=== PATIENT | male | born 1985 | race Caucasian/White ===

== ENCOUNTER → 2020-09-29 10:23 | Outpatient (BNVA) | payer OTHER, SELFPAY | PROVIDERS: PCP Pediatrics; Visit Provider Surgery ==

== ENCOUNTER → 2020-10-13 08:26 | Outpatient (BNVA) | payer OTHER, SELFPAY | PROVIDERS: PCP Pediatrics; Visit Provider Surgery ==

== ENCOUNTER → 2020-10-27 08:22 | Outpatient (BNVA) | payer OTHER, SELFPAY | PROVIDERS: PCP Pediatrics; Visit Provider Dietitian, Registered ==

== ENCOUNTER 2020-11-08 07:12 | Outpatient (REF) | payer OTHER, SELFPAY ==
--- NOTE | ~2020-11-08 | XR_ITS ---
EXAMINATION: XR CHEST CLINICAL INFORMATION: Shortness of breath. COMPARISON: None TECHNIQUE: 2 views of the chest were obtained. FINDINGS: No significant abnormality is noted involving the heart, lungs, mediastinum, bony thorax or soft tissues. XR/XR chest 2V IMPRESSION: No acute cardiopulmonary process.
--- NOTE | 2020-11-08 07:34 | ECG_ITS ---
Test Reason : MORBID OBESITY Blood Pressure : / mmHG Vent. Rate : 078 BPM Atrial Rate : 078 BPM P-R Int : 158 ms QRS Dur : 100 ms QT Int : 372 ms P-R-T Axes : 053 045 036 degrees QTc Int : 424 ms Normal sinus rhythm Normal ECG No previous ECGs available Referred By: Soco Gonzalez Electronically Signed By:Everardo Jansen
[2020-11-08 07:59] LABS: MANUAL DIFF FLAG NO
[2020-11-08 08:02] LABS: Basophils Percent Auto 0.4 % (0-2); Eosinophils Absolute Auto 0.3 X10*3/uL (0.0-0.4); Eosinophils Percent Auto 4.1 % (0-4); Hematocrit 46.7 % (42-52); Hemoglobin 14.9 g/dl (14.0-18.0); Imm Gran Abs Auto 0.01 X10*3/uL (0.00-0.03); Imm Gran Pct Auto 0.1 % (0.0-0.4); Lymphocytes Absolute Auto 2.1 X10*3/uL (1.2-4.9); Mean Corpuscular HGB Conc 31.9 g/dl (31.0-36.0); Mean Corpuscular Hemoglobin 29.3 pg (27.0-33.0); Mean Corpuscular Volume 91.9 fL (80-98); Mean Platelet Volume 9.4 fL (9.4-12.4); Monocytes Absolute Auto 0.4 X10*3/uL (0.1-1.2); Monocytes Percent Auto 5.9 % (2-11); Neutrophils Absolute Auto 3.9 X10*3/uL (2.0-8.3); Neutrophils Percent Auto 58.5 % (45-73); Platelet Count 272 X10*3/uL (160-400); Red Blood Count 5.08 X10*6/uL (4.60-5.80); Red Cell Distribution Width 12.7 % (11.0-16.0); White Blood Count 6.8 X10*3/uL (4.8-10.8)
[2020-11-08 08:30] LABS: Alanine Aminotransferase 46 U/L (0-40); Albumin Level 4.6 g/dL (3.5-5.0); Alkaline Phosphatase 66 U/L (39-117); Anion Gap 13 (12-20); Aspartate Amino Transferase 38 U/L (5-37); Bilirubin Total 0.5 mg/dL (0.0-1.0); Blood Urea Nitrogen 14 mg/dL (9-16); C Reactive Protein 0.84 mg/dL (< or = 0.50); Calcium 9.6 mg/dL (8.4-10.2); Carbon Dioxide 26 mmol/L (22-29); Chloride 106 mmol/L (96-108); Cholesterol 203 mg/dL; Estimated Glomerular Filt Rate > 60; Glucose Fasting 115 mg/dL (60-99); HDL Cholesterol 30 mg/dL; Iron 49 mcg/dL (45-160); LDL Cholesterol Calculated 151 mg/dl; Percent Iron Saturation 11 % (15-50); Potassium 4.8 mmol/L (3.3-5.1); Sodium 140 mmol/L (135-145); Total Iron Binding Capacity 453 mcg/dL (228-428); Total Protein 7.5 g/dL (6.5-8.0); Triglycerides 114 mg/dL; Unsaturated Iron Binding 404 ug/dL
[2020-11-08 08:50] LABS: Vitamin D 25-OH Total 19.5 ng/mL (>30)
[2020-11-08 08:56] LABS: Vitamin B12 407 pg/mL (200-900)
[2020-11-09 14:57] LABS: H Pylori Breath Test NOT DETECTED (NOT DETECTED)
[2020-11-09 15:46] LABS: Calcium (PTHI) 10.1 mg/dL (8.6-10.3); PTHI 53 pg/mL (14-64)
[2020-11-11 00:47] LABS: Zinc 74 mcg/dL (60-130)
[2020-11-11 11:56] LABS: Vitamin B1 <6 nmol/L (8-30)
[2020-11-14 18:53] LABS: Vitamin A 51 mcg/dL (38-98)
== END 2020-11-08 07:13 | disposition home or self-care (01) ==
LOC: HO.LAB 07:12
PROVIDERS: PCP Pediatrics; Visit Provider Surgery
DX: Z01.818 Encounter for other preprocedural examination (principal); R06.02 Shortness of breath
CPT/HCPCS: 36415; 71046; 80053; 80061; 82306; 82607; 83013; 83540; 83970; 84425; 84443; 84590; 84630; 85025; 86140; 93005

== ENCOUNTER → 2020-11-10 14:28 | Outpatient (BNVA) | payer OTHER, SELFPAY | PROVIDERS: PCP Pediatrics; Visit Provider Surgery ==

== ENCOUNTER → 2020-11-22 16:11 | Outpatient (BNVA) | payer OTHER, SELFPAY | PROVIDERS: PCP Pediatrics; Visit Provider Dietitian, Registered ==

== ENCOUNTER → 2020-12-06 16:03 | Outpatient (BNVA) | payer OTHER, SELFPAY | PROVIDERS: PCP Pediatrics; Visit Provider Surgery ==

== ENCOUNTER 2021-01-17 15:53 | Outpatient (REF) | payer OTHER, SELFPAY ==
[2021-01-17 18:18] LABS: Vitamin D 25-OH Total 27.8 ng/mL (>30)
[2021-01-22 11:56] LABS: Vitamin B1 11 nmol/L (8-30)
== END 2021-01-17 15:54 | disposition home or self-care (01) ==
LOC: HO.LAB 15:53
PROVIDERS: PCP Pediatrics; Referring Provider Pediatrics; Visit Provider Surgery
DX: Z01.818 Encounter for other preprocedural examination (principal); E66.01 Morbid (severe) obesity due to excess calories; Z68.34 Body mass index [BMI] 34.0-34.9, adult; E51.9 Thiamine deficiency, unspecified; E55.9 Vitamin D deficiency, unspecified
CPT/HCPCS: 36415; 82306; 84425

== ENCOUNTER → 2021-02-15 14:42 | Outpatient (BNVA) | payer OTHER, SELFPAY | PROVIDERS: PCP Pediatrics; Referring Provider Pediatrics; Visit Provider Physician Assistant ==

== ENCOUNTER → 2021-03-21 08:09 | Outpatient (BNVA) | payer OTHER, SELFPAY | PROVIDERS: PCP Pediatrics; Visit Provider Dietitian, Registered | DX: E66.01 Morbid (severe) obesity due to excess calories (principal) | CPT/HCPCS: 97803 ==

== ENCOUNTER → 2021-06-13 15:45 | Outpatient (BNVA) | payer OTHER, SELFPAY | PROVIDERS: PCP Pediatrics; Referring Provider Pediatrics; Visit Provider Physician Assistant Surgical ==

== ENCOUNTER → 2021-07-06 12:52 | Outpatient (BNVA) | payer OTHER, SELFPAY | PROVIDERS: PCP Pediatrics; Visit Provider Physician Assistant | DX: S61.215A Laceration without foreign body of left ring finger without damage to nail, initial encounter (principal); W26.8XXA Contact with other sharp object(s), not elsewhere classified, initial encounter | CPT/HCPCS: 12001; 99203 ==

== ENCOUNTER → 2021-07-10 09:40 | Outpatient (BNVA) | payer OTHER, SELFPAY | PROVIDERS: PCP Pediatrics; Visit Provider Physician Assistant Medical | DX: S61.215A Laceration without foreign body of left ring finger without damage to nail, initial encounter (principal); W26.9XXA Contact with unspecified sharp object(s), initial encounter | CPT/HCPCS: 99213 ==

== ENCOUNTER → 2021-07-14 09:17 | Outpatient (BNVA) | payer OTHER, SELFPAY | PROVIDERS: PCP Pediatrics; Visit Provider Physician Assistant | DX: S61.215A Laceration without foreign body of left ring finger without damage to nail, initial encounter (principal); W26.9XXA Contact with unspecified sharp object(s), initial encounter; Z48.02 Encounter for removal of sutures | CPT/HCPCS: 99214 ==

== ENCOUNTER → 2021-07-17 10:58 | Outpatient (BNVA) | payer OTHER, SELFPAY | PROVIDERS: PCP Pediatrics; Visit Provider Internal Medicine | DX: S61.215A Laceration without foreign body of left ring finger without damage to nail, initial encounter (principal); W26.9XXA Contact with unspecified sharp object(s), initial encounter | CPT/HCPCS: 99213 ==

== ENCOUNTER 2021-07-24 08:05 | Outpatient (REF) | payer OTHER, SELFPAY ==
--- NOTE | ~2021-07-24 | FL_ITS ---
EXAMINATION: XR GI SERIES CLINICAL INFORMATION: [id number] obesity due to excess calories. Preop workup. COMPARISON: None. TECHNIQUE: Routine upper GI air-contrast study was performed. FINDINGS: Following oral administration of thick barium and effervescent granules in upright view, there is normal propagation of bolus from the oral cavity, through the pharynx and esophagus and into the stomach without any evidence of obstruction or narrowing. On placing patient supine and prone lying, the course, caliber and peristalsis of stomach and the duodenal bulb are normal. There is moderate gastroesophageal reflux without hiatal hernia. The mucosal pattern of the stomach, duodenal bulb and the sweep is normal. FLUOROSCOPY TIME: 1.2 minutes. DOSE AREA PRODUCT: 60.613 uGy-m2 (microgray-meter squared). FL/FL upper GI series IMPRESSION: Moderate gastroesophageal reflux without hiatal hernia.
--- NOTE | ~2021-07-24 | US_ITS ---
EXAMINATION: US COMPLETE ABDOMEN WITH LIVER ELASTOGRAPHY CLINICAL INFORMATION: Moderate/severe obesity due to excess calories. COMPARISON: None. TECHNIQUE: Real-time imaging of the abdominal viscera. Noninvasive ultrasound liver fibrosis assessment is performed using Raissa ElastPQ point quantification shear wave elastography (pSWE) with a C5-2 MHz transducer. Multiple elastography samples are obtained. FINDINGS: PANCREAS: The visualized pancreatic head and body are normal in appearance. The remainder of the pancreas is obscured from visualization by the overlying bowel gas. ABDOMINAL AORTA: The proximal, middle, and distal aortic segments are normal in caliber. INFERIOR VENA CAVA: Visualized portions are normal. LIVER: The liver demonstrates normal size, contour and increased echogenicity. No focal lesion or intrahepatic biliary duct dilatation. The right lobe measures 24.2 cm in length. The left lobe measures 14.0 cm in length. Portal flow is hepatopetal. Shear wave liver elastography median stiffness is 1.73 m/s (reference: normal median stiffness is 1.3 m/s or less). IQR/median stiffness to assess sampling precision is 0.14 (reference: good quality data set is IQR/median stiffness of 0.15 or less). GALLBLADDER: Normal. The gallbladder is physiologically distended without evidence of stones, sludge, polyps, wall thickening or pericholecystic fluid. COMMON BILE DUCT: Normal in caliber measuring 0.3 cm in diameter. RIGHT KIDNEY: Normal. No hydronephrosis. No renal calculi or focal parenchymal lesions. The kidney measures 12.2 cm in maximum dimension. LEFT KIDNEY: Normal. No hydronephrosis. No renal calculi or focal parenchymal lesions. The kidney measures 13.2 cm in maximum dimension. SPLEEN: Normal. The spleen measures 11.9 cm in maximum dimension. FREE FLUID: None. US/US abdomen comp w elastography IMPRESSION: 1. Diffusely echogenic liver without focal lesion. 2. The rest of the abdominal ultrasound is unremarkable. 3. Liver elastography: Median liver stiffness 1.73 m/s. Findings suggestive of cACLD. REFERENCE: Society of Radiologists in Ultrasound Liver Stiffness Thresholds (2019): LIVER STIFFNESS THRESHOLDS: *Liver Stiffness equal or less than 1.3 m/s: High probability of being normal. *Liver Stiffness less than 1.7 m/s: In the absence of other known clinical signs, rules out compensated advanced chronic liver disease. *Liver Stiffness 1.7-2.1 m/s: Suggestive of compensated advanced chronic liver disease but need further test for confirmation. *Liver Stiffness over 2.1 m/s: Rules in compensated advanced chronic liver disease. *Liver Stiffness over 2.4 m/s: Suggestive of clinically significant portal hypertension. QUALITY OF DATA SET: *IQR/Median value equal or less than 0.15 implies a quality data set. *IQR/Median value over 0.15 implies a poor quality data set. SIGNIFICANT CHANGE FROM PRIOR EXAM: Significant change if liver stiffness measurement is 10% or greater from prior exam. OTHER CONSIDERATIONS: The stage of liver fibrosis may be overestimated in the setting of acute hepatitis, liver inflammation, elevated liver function tests, hepatic vascular congestion, obstructive cholestasis, non-fasting state, and infiltrative diseases such as amyloidosis and lymphoma. In some patients with NAFLD, the liver stiffness thresholds for compensated advanced chronic liver disease may be lower. In causes other than viral hepatitis and NAFLD, liver stiffness thresholds are not well established.
== END 2021-07-24 08:06 | disposition home or self-care (01) ==
LOC: HO.US 08:05
PROVIDERS: PCP Pediatrics; Visit Provider Physician Assistant Surgical
DX: E66.01 Morbid (severe) obesity due to excess calories (principal)
CPT/HCPCS: 74240; 76705; 76981

== ENCOUNTER → 2022-01-03 10:03 | Outpatient (BNVA) | payer OTHER, SELFPAY | PROVIDERS: PCP Pediatrics; Visit Provider Physician Assistant Surgical | DX: E66.01 Morbid (severe) obesity due to excess calories (principal) ==

== ENCOUNTER → 2022-01-17 16:00 | Outpatient (BNVA) | payer OTHER, SELFPAY | PROVIDERS: PCP Pediatrics; Referring Provider Physician Assistant Surgical; Visit Provider Counselor Mental Health | DX: Z13.89 Encounter for screening for other disorder (principal) | CPT/HCPCS: 90834 ==

== ENCOUNTER → 2022-03-15 15:45 | Outpatient (BNVA) | payer SELFPAY | PROVIDERS: PCP Pediatrics; Visit Provider Counselor Mental Health | DX: F33.2 Major depressive disorder, recurrent severe without psychotic features (principal); E66.01 Morbid (severe) obesity due to excess calories | CPT/HCPCS: 90834 ==

== ENCOUNTER → 2022-07-24 13:53 | Outpatient (BNVA) | payer OTHER, SELFPAY | PROVIDERS: PCP Pediatrics; Visit Provider Physician Assistant Medical | DX: S93.401A Sprain of unspecified ligament of right ankle, initial encounter (principal); X50.1XXA Overexertion from prolonged static or awkward postures, initial encounter | CPT/HCPCS: 73610; 99203 ==

== ENCOUNTER → 2022-08-01 13:00 | Outpatient (BNVA) | payer OTHER, SELFPAY | PROVIDERS: PCP Pediatrics; Visit Provider Physician Assistant Medical | DX: S93.401A Sprain of unspecified ligament of right ankle, initial encounter (principal); X50.1XXA Overexertion from prolonged static or awkward postures, initial encounter | CPT/HCPCS: 99213 ==

== ENCOUNTER 2022-10-10 16:00 | Outpatient (RCR) | payer OTHER, SELFPAY | END 2022-11-06 14:25 | disposition home or self-care (01) | LOC: HO.PT 16:00 | PROVIDERS: PCP Pediatrics; Visit Provider Podiatrist | DX: M72.2 Plantar fascial fibromatosis (principal) | CPT/HCPCS: 97033; 97110; 97140; 97162; 97530 ==

== ENCOUNTER 2023-08-09 20:28 | Emergency (ER) | payer OTHER, SELFPAY ==
[2023-08-09 20:30] VITALS: BP 146/75; PULSE 91; RESP 18; TEMP 36.3; O2SAT 100; BMI 53.8
--- NOTE | 2023-08-09 20:30 | ED_ITS ---
HPI - General Adult General Chief complaint: Wound/Laceration Stated complaint: LT leg inj Time Seen by Provider: 08/09/23 21:06 Source: patient Mode of arrival: ambulatory Limitations: no limitations History of Present Illness HPI narrative: Up comes to the emergency room complaining of a varicose vein bleed. Patient states that earlier today, patient hit his knee against a forklift. Patient states that his knee started bleeding profusely. On arrival, pressure was applied to the affected area and the bleeding stopped. Otherwise, patient states that he has no other injuries, patient is asymptomatic. Related Data Home Medications Medication Instructions Recorded Confirmed acetaminophen 325 mg tablet 325 mg PO QID PRN 09/29/20 01/03/22 (Tylenol) cinnamon bark 500 mg capsule 500 mg PO DAILY 09/29/20 01/03/22 multivitamin 1 tab PO DAILY 09/29/20 01/03/22 omega-3 fatty acids 1,000 mg 1,000 mg PO DAILY 09/29/20 01/03/22 capsule (Fish Oil Concentrate) loratadine 10 mg tablet (Claritin) 10 mg PO DAILY 01/17/21 01/03/22 Allergies Allergy/AdvReac Type Severity Reaction Status Date / Time Seasonal Allergies Allergy Severe Sneezing Verified 08/09/23 20:30 Review of Systems Review of Systems: Constitutional : No Weight loss, No Fever, No Chills, No Night Sweats, No Fatigue, No Malaise ENT/Mouth : No Hearing loss, No Ear Pain, No Nasal Congestion, No Sinus Pain, No Hoarseness, No sore throat, No Rhinorrhea, No Swallowing Difficulty Eyes: No Eye Pain, No Swelling, No Redness, No Foreign Body, No Discharge, No Vision Changes Cardiovascular : No Chest Pain, No SOB, No Dyspnea on Exertion, No Orthopnea, No Edema, No Palpitations Respiratory : No Cough, No Sputum, No Wheezing, No Smoke Exposure, No Dyspnea Gastrointestinal : No Nausea, No Vomiting, No Diarrhea, No Constipation, No abdominal Pain, No Hematochezia, No Melena Genitourinary : no irregular bleeding, No Dysuria, No Urinary Frequency, No Hematuria, No Urinary Incontinence, No Urgency, No Flank Pain, No Urinary Flow Changes, No Hesitancy Musculoskeletal : No joint pain, No Myalgias, No Joint Swelling Skin : Complaining of a small bleeding varicose vein in the left lower extremity at the knee cap Neuro : No Weakness, No Numbness, No Paresthesias, No Loss of Consciousness, No Dizziness, No Headache Psych : No Anxiety/Panic, No Depression, No SI/HI/AH/VH, No Social Issues, Heme/Lymph: No Bruising, No Bleeding,No Lymphadenopathy Endocrine : No Polyuria, No Polydipsia, No Temperature Intolerance [facility] Past Medical History Medical History Sleep apnea with use of continuous positive airway pressure (CPAP) GERD (gastroesophageal reflux disease) ADHD Morbid obesity due to excess calories Surgical History History of eye surgery History of surgery on extremity History of hip surgery History of tonsillectomy and adenoidectomy History of placement of ear tubes Family History Family History Mother Diabetes Father No problems noted. Brother No problems noted. Brother No problems noted. Maternal Grandfather Colon cancer Social History Social History Alcohol intake: current Alcohol intake frequency: a few times a week Alcohol type: beer Patient Tobacco Use Status: Never used Tobacco Advance Directives: No Advance Directives Information Provided: No Physical Exam ED Vital Signs: Vital Signs - 24 hr 08/09/23 20:30 Temperature 97.3 F Pulse Rate 91 Respiratory Rate 18 Blood Pressure 146/75 H Pulse Oximetry 100 Oxygen Delivery Method Room Air BMI result Body Mass Index 53.8 Const Other: Appearance: Alert. Oriented X3. No acute distress. Eyes: Pupils equal, round and reactive to light. ENT: Pharynx normal. Neck: Normal inspection. Neck supple. No lymph nodes noted. No crepitus CVS: Normal heart rate and rhythm. Pulses normal. Normal S1 and S2 Respiratory: No respiratory distress. Breath sounds normal. No Wheezing. No rales Abdomen: Soft and nontender. No rigidity. No distention. Skin: Skin warm and dry. Normal skin color. Normal skin turgor. There is a 0.5 cm laceration to the left knee, scant amount of bleeding at this time. Extremities: No lower extremity edema. No Lacerations. No Rash Neuro: Oriented X 3. No motor deficit. No sensory deficit. Moving all extremities. No slurred speech. CN 2 through 12 grossly intact Psych: calm, cooperative, normal affect Course Course Course Narrative: RME- 38 year old male presents for evaluation of a puncture wound to the left knee. Reports significant bleeding. On exam, there is a small puncture wound over the patella. Bleeding is controlled at the time of triage. Tetanus is up to date. Plan for x-ray of the left knee Medications Administered Discontinued Medications Generic Name Dose Route Start Last Admin Trade Name Kay PRN Reason Stop Dose Admin Lidocaine HCl 2 ml 08/09/23 21:11 08/09/23 21:19 Lidocaine Hcl 2% 2 Ml Vial INFILTRATI 08/09/23 21:12 2 ml ONCE ONE Administration Procedures Laceration Laceration 1: Site: lower extremity Side (If applicable): left Size (cm): 0.5 Description: linear and flap Depth: simple, single layer Local Anesthetic: lidocaine 1% Amount of anesthesia used (mL): 1 Skin layer closed with: nylon Size (cm): 5-0 Number of sutures: 2 Technique: simple, interrupted Medical Decision Making Medical Decision Making [facility] Narrative: -two stitches were applied, bleeding stopped. -patient states that he had his tetanus shot approximately 2 years ago. Up-to-date. Differential Diagnosis Differential Diagnoses: The differential diagnosis associated with the presentation includes (Laceration, puncture wound) Discharge Plan Discharge Clinical Impression: Laceration of skin of knee Patient Disposition: Home, Self-Care Instructions: Laceration (ED) Additional Instructions: Your stitches need to be removed in 7-10 days. Please follow-up with your primary care physician tomorrow. If you have any worsening or new symptoms, please return to the emergency room or call 911 Prescriptions: No Action acetaminophen [Tylenol] 325 mg tablet 325 mg PO QID PRN multivitamin Tablet 1 tab PO DAILY omega-3 fatty acids [Fish Oil Concentrate] 1,000 mg capsule 1,000 mg PO DAILY cinnamon bark 500 mg capsule 500 mg PO DAILY loratadine [Claritin] 10 mg tablet 10 mg PO DAILY Stand Alone Forms: Work/School Release
== END 2023-08-09 22:18 | disposition home or self-care (01) ==
PROVIDERS: Emergency Provider Emergency Medicine
DX: S81.012A Laceration without foreign body, left knee, initial encounter (principal); W26.9XXA Contact with unspecified sharp object(s), initial encounter; Y93.9 Activity, unspecified; Y92.9 Unspecified place or not applicable; Y99.0 Civilian activity done for income or pay
CPT/HCPCS: 12001; 99282; 99284

== ENCOUNTER → 2025-04-20 09:56 | Outpatient (BNVA) | payer OTHER, SELFPAY | PROVIDERS: PCP Internal Medicine; Visit Provider Registered Nurse | DX: S83.412A Sprain of medial collateral ligament of left knee, initial encounter (principal); X50.1XXA Overexertion from prolonged static or awkward postures, initial encounter | CPT/HCPCS: 99203 ==

== ENCOUNTER → 2025-04-22 07:46 | Outpatient (BNVA) | payer OTHER, SELFPAY | PROVIDERS: PCP Internal Medicine; Visit Provider Physician Assistant Medical | DX: S83.412A Sprain of medial collateral ligament of left knee, initial encounter (principal); X50.1XXA Overexertion from prolonged static or awkward postures, initial encounter; M23.92 Unspecified internal derangement of left knee | CPT/HCPCS: 99213 ==

== ENCOUNTER → 2025-04-26 08:05 | Outpatient (BNVA) | payer OTHER, SELFPAY | PROVIDERS: PCP Internal Medicine; Visit Provider Physician Assistant Medical | DX: M23.8X2 Other internal derangements of left knee (principal); S83.412A Sprain of medial collateral ligament of left knee, initial encounter; X50.1XXA Overexertion from prolonged static or awkward postures, initial encounter | CPT/HCPCS: 99213 ==

== ENCOUNTER 2025-04-30 09:25 | Outpatient (AMB) | payer BC, SELFPAY ==
--- OUTSIDE RECORDS SUMMARY | 2023-07-22 18:40 | XMS_ITS | Encounter Summary ---
Author Organization [facility] Address [address] [place] [address] Phone Care Team Providers Care Supervisor Pigment Making Name Role Phone Elmer Sky MD Primary Care Provider Encounter Details Date Type Department Care Team (Late st Contact Info) Description 07/22/2023 5:40 PM EST Hospital Encounter [facility] [address] [place] [id number] Zahra Mendoza, MOBILE APPLICATION DEVELOPMENT LEAD [address] [place] [address] [email or web address] Social History Tobacco Use Types Packs/Day Years Used Date Smoking Tobacco: Never Smokeless Tobacco: Never Education Answer Date Recorded Are you interested in more education? Not on margarita e 01/11/2023 Are you concerned about learning? Not on file 01/11/2023 No 01/11/2023 No 01/11/2023 Digital Access Answer Date Recorded No 01/26/2023 No 01/26/2023 Reliable internet access at home? Not on file 01/26/2023 Device with a working camera? Not on file Intimate Partner Violence Answer Date R ecorded Are you denied basic needs s uch as food, clothing, or medical care? No 12/18/2024 In the past 12 months have y ou been in a relationship with a person who hurts, threatens, or tries to control you? No 12/18/2024 Are you denied basic needs s uch as food, clothing, or medical care? No 12/18/2024 In the past 12 months have y ou been in a relationship with a person who hurts, threatens, or tries to control you? No 12/18/2024 Sex and Gender Information Value Date Recorded Sex Assigned at Not on file Legal Sex Male 9:16 PM EDT Gender Identity Not on file Sexual Orientation Not on file documented as of this encounter Functional Status * Calculated C-SSRS Risk Score (Lifetime/Recent) Answer Date of Assessment Author No Risk Indicated 12/18/2024 11:26 AM EDT Asha Aguirre RN * [place] Suicide Severity Rating Scale (Screener/Recent Self-Report) Question Answer Date of Assessment Author 1. Wish to be (Past 1 Month) No 025 11:26 AM EDT Asha Aguirre RN 2. Non-Specific Active Suici gerald Thoughts (Past 1 Month) No 12/18/2024 11:26 AM EDT Asha Aguirre RN 6. Suicidal Behavior (Lifetime) No 11:26 AM EDT Asha Aguirre RN documented as of this encounter Plan of Treatment Not on file documented as of this encounter Procedures Procedure Name Priority Date/Time Associated Diagnosis Comments XR CHEST PA AND LATERAL 2 VIEWS Urgent/patient waiting 07/22/2023 5:47 PM EST Cough documented in this encounter Results * XR CHEST PA AND LATERAL 2 VIEWS (07/22/2023 5:47 PM EST) Anatomical Region Laterality Modality Chest Computed Radiogr aphy 07/22/2023 5:48 PM EST Impressions 07/22/2023 5:48 PM EST Mild peribronchial thickening could suggest viral pneumonitis or reactive airways disease. No lobar consolidations. Narrative 07/22/2023 5:48 PM EST XR CHEST PA AND LATERAL 2 VIEWS Referring clinician's provided indication for this examination in Epic: Cough; ? PNA COMPARISON: None FINDINGS: Lungs: Mild peribronchial thickening could suggest viral pneumonitis or reactive airways disease. No lobar consolidations. Pleura: No pleural effusion. No pneumothorax Heart/Mediastinum: Heart size normal. Bones/Soft Tissues: No acute finding Procedure Note Montrell Brooks MD, [facility] - 07/22/2023 XR CHEST PA AND LATERAL 2 VIEWS Referring clinician's provided indication for this examination in Epic:Cough; ? PNA COMPARISON: None FINDINGS: Lungs: Mild peribronchial thickening could suggest viral pneumonitis orreactive airways disease. No lobar consolidations. Pleura: No pleural effusion. No pneumothorax Heart/Mediastinum: Heart size normal. Bones/Soft Tissues: No acute finding IMPRESSION: Mild peribronchial thickening could suggest viral pneumonitis or reactiveairways disease. No lobar consolidations. us Zahra Mendoza MOBILE APPLICATION DEVELOPMENT LEAD IMG XR CHEST Final Resul t documented in this encounter Visit Diagnoses Not on filedocumented in this encounter Additional Health Concerns Infection Onset Date Last Indicated Resolved Time CoV-Risk 07/22/2023 07/22/2023 08/02/2023 1:22 AM EST documented as of this encounter Care Teams Supervisor Pigment Making Relationship Specialty Start Date End Date Elmer Sky MD PCP - General Internal Medicine 04/29/23 12/17/24 documented as of this encounter Additional Source Comments The information contained in this document represents components of the legal health record. It is not the complete legal health record.[facility]
--- OUTSIDE RECORDS SUMMARY | 2025-04-27 15:30 | XMS_ITS | Encounter Summary ---
Author Organization [facility] Address [address] [place] [address] Care Team Providers Care Stand Up Forklift Operator Name Role Phone Elmer Sky MD Primary Care Provider [phone] Reason for Visit * Reason Comments Follow-up 3wk follow up Encounter Details Date Type Department Care Team (Late st Contact Info) Description 04/27/2025 3:30 PM EDT Office Visit Adult Medicine [address] [phone] Elmer Sky MD [address] [place] [address] Hematoma of leg, left, subsequent encounter (Primary Dx); Hematoma of left thigh, subsequent encounter; Varicose veins of bilateral lower extremities with other complications; Impacted cerumen of left ear Social History Tobacco Use Types Packs/Day Years Used Date Smoking Tobacco: Never Smokeless Tobacco: Never Alcohol Use Standard Drinks/Week Comments Yes 0 (1 standard drink = 0.6 oz pur e alcohol) Housing Instability Answer Date Recorde d Are you worried that in the next 2 months you may not have stable housing? No 02/22/2025 Food Access & Nutrition Answer Date Rec orded Do you have access to a vari ety of food including fruits and vegetables? Yes 02/22/2025 Access to Healthcare Answer Date Record ed Within the last 3 months, ho w many times did you visit the emergency department for your medical care? 4 02/22/2025 Health Literacy Answer Date Recorded How often do you need to hav e someone help you when you read instructions, pamphlets, or other written material from your doctor or pharmacy? Never 02/22/2025 Caregiver: How often do you need to have someone help you when you read instructions, pamphlets, or other written material from your doctor or pharmacy? Not on file 02/22/2025 Financial Risk Answer Date Recorded How hard is it for you to pa y for the very basics like food, housing, medical care, and air conditioning / heating? Not very hard 02/22/2025 Transportation Answer Date Recorded Has the lack of transportati on kept you from meetings, work, or from getting things needed for daily living? No Has the lack of transportati on kept you from medical appointments or from getting medications? No 02/22/2025 Social Isolation Answer Date Recorded How often do you feel lonely or isolated from th ose around you? Never 02/22/2025 Food Risk Answer Date Recorded Within the past 12 months we worried whether our food would run out before we got money to buy more. Never true 02/22/2025 Within the past 12 months th e food we bought just didn't last and we didn't have money to get more. Never true 02/22/2025 Dependent Care Answer Date Recorded Do you need help finding or paying for care for your loved ones. For example, child care teacher or elderly care for an older adult? No 02/22/2025 Education Answer Date Recorded Do you think completing more education or training, like finishing a GED, going to college, or learning a trade, would be helpful for you? N/A 02/22/2025 Employment and Income Answer Date Recor ded During the last four weeks, have you been actively looking for work? No 02/22/2025 Living Situation Answer Date Recorded What is your living situation? 0 02/22/2025 Sex and Gender Information Value Date Recorded Sex Assigned at Not on file Legal Sex Male 11:47 AM EST Gender Identity Not on file Sexual Orientation Not on file documented as of this encounter Last Filed Vital Signs Vital Sign Reading Time Taken Comments Blood Pressure 137/83 04/27/2025 3:37 PM EDT Pulse 89 04/27/2025 3:37 PM EDT Temperature 36.1 C (96.9 F) 04/27/2025 3:37 PM EDT Respiratory Rate - - Oxygen Saturation - - Inhaled Oxygen Concentration - - Weight 200 kg (441 lb) 04/27/2025 3:37 PM EDT Height 177.8 cm (5' 10 ) 04/27/2025 3:37 PM EDT Body Mass Index 63.28 04/27/2025 3:37 PM EDT documented in this encounter Ordered Prescriptions Prescription Sig Dispense Quantity Refills Last Filled Start Date End Date oxyCODONE (ROXICODONE) 5 mg immediate release tabletIndications:H ematoma of left thigh, subsequent encounter,Hematoma of leg, left, subsequent encounter Take 1 tablet (5 mg total) by mouth 2 (two) times a day if needed for severe pain. Max Daily Amount: 10 mg 14 tablet 04/27/2025 documented in this encounter Progress Notes * Elmer Sky MD - 04/27/2025 3:30 PM EDT CHIEF COMPLAINT: Follow-up (3wk follow up) IDENTIFIER: Kiet Spain is a 39 y.o. old male. HPI: 39-year-old male patient with a past medical history of morbid obesity, PRANAV on CPAP therapy, varicose veins lower extremities, recent traumatic left leg hematoma and left lower thigh hematoma, ADHD, insomnia, who is seen here for follow-up exam. So far he underwent ultrasound-guided aspiration of the hematoma for 3 times. 3 weeks ago 100 mL of serous fluid was aspirated from left leg. He is stillhaving left upper leg swelling with some mild tenderness. Overall he is feeling better, he is ambulating without any issues. He is having an appointment with general surgeon this week. He is also having an appointment with vascular surgery. I recommended him to take Tylenol as needed and avoid NSAIDs. I will give him prescription for oxycodone 5 mg as needed for severe pain. He has cerumen impaction on the left side. After obtaining consent, I irrigated the left ear with warm water and removed 90% of wax. Procedure was uneventful. ROS: GENERAL: No malaise, significant weight loss or fever HEENT: Left ear discomfort. No changes in vision, nose bleeds or other nasal problems NECK: No lumps RESPIRATORY: No cough, wheezing or shortness of breath CARDIOVASCULAR: No chest pain, or palpitations GI: No abdominal pain, hematochezia, melena : No dysuria, oliguria, polyuria, hematuria, flank pain MUSCULOSKELETAL: No joint pain or swelling, back pain, or muscle pain. SKIN: No lesions, rash or itching NEURO: No persistent headache, syncope, seizures, weakness or numbness PAST MEDICAL HISTORY: Patient Active Problem List Diagnosis Date Noted Morbid obesity ([facility] V24, [facility] V28) 08/19/2024 Insomnia 05/07/2022 Periodic limb movement disorder (PLMD) 02/14/2021 ADHD (attention deficit hyperactivity disorder) 12/25/2013 PRANAV (obstructive sleep apnea) 12/10/2013 Past Surgical History: Procedure Laterality Date OTHER SURGICAL HISTORY 01/1997 PROCEDURE: MO [employer] 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 Bates thumb tendon repair OTHER SURGICAL HISTORY PROCEDURE: MO PYLOROPLASTY SKIN BIOPSY 06/2001 PROCEDURE: BIOPSY OF SKIN LESION; COMMENT: COMPOUND NEVUS TONSILLECTOMY PROCEDURE: HISTORICAL TONSILLECTOMY TYMPANOSTOMY TUBE PLACEMENT PROCEDURE: HISTORICAL PE TUBES; COMMENT: X 2 SOCIAL HISTORY: Social History Tobacco Use Smoking status: Never Smokeless tobacco: Never Substance Use Topics Alcohol use: Yes FAMILY HISTORY: Family History Problem Relation Name Age of Onset Colon cancer Maternal Grandfather mid 60s Heart attack Maternal Grandmother Arthritis Maternal Grandmother Diabetes Paternal Grandmother INSULIN Family Status Relation Name Status MGF DM MGM PGM Father Alive 1957; asthma; obese Mother Alive 1957; DM; obese Brother Alive 1986; obese PGF No partnership data on file MEDICATIONS DISCONTINUED/REORDERED: Medications Discontinued During This Encounter Medication Reason oxyCODONE (ROXICODONE) 5 mg immediate release tablet Therapy completed ACTIVE MEDICATIONS: Outpatient Medications Marked as Taking for the 04/27/25 encounter (Office Visit) with Elmer Sky MD Medication Sig Dispense Refill acetaminophen (TYLENOL) 500 mg capsule 1 CAPSULE EVERY 4 HOURS NEEDED amphetamine-dextroamphetamine (ADDERALL) 30 mg tablet Take 1 tablet (30 mg total) by mouth 2 times daily. cholecalciferol (Vitamin D3) 50 mcg (2,000 unit) capsule Take 1 capsule (2,000 Units total) by mouth 1 (one) time each day. 90 capsule 1 furosemide (LASIX) 20 mg tablet Take 1 tablet (20 mg total) by mouth 1 (one) time each day. 30 each0 gabapentin (NEURONTIN) 300 mg capsule Take 1 capsule (300 mg total) by mouth at bedtime as needed (Insomnia). qualggkm-dqewlzsop-uanncfrbwejqwp (CORTISPORIN) otic solution Administer 2 drops into the left ear 4 (four) times a day. 10 mL 0 oxyCODONE (ROXICODONE) 5 mg immediate release tablet Take 1 tablet (5 mg total) by mouth 2 (two) times a day if needed for severe pain. Max Daily Amount: 10 mg 14 tablet 0 ALLERGIES: Allergies Allergen Reactions Other Seasonal PHYSICAL EXAM: Visit Vitals BP 137/83 Pulse 89 Temp 36.1 ??C (96.9 ??F) (Temporal) Ht 1.778 m (70 ) Wt 200 kg (441 lb) BMI 63.28 kg/m?? Smoking Status Never BSA 2.92 m?? Physical Exam APPEARANCE: Alert and in no acute distress EYES: PERRLA, conjunctiva and sclera normal. EARS: Cerumen impaction on the left side NOSE/SINUS: Nares normal. MOUTH/THROAT: no erythema or exudates HEART: RRR with normal S1 and S2, no murmurs LUNG: clear to auscultation, no wheezing ABDOMEN: Bowel sounds normoactive, soft, non-tender and no palpable masses. BACK: No pain to palpation EXTREMITIES: Left upper leg and left lower thigh swelling NEURO: Awake, alert and oriented x 3. No focal neurological deficits SKIN: No rashes LABS: @CBC@ Lab Results Component Value Date NA 135 04/07/2025 K 4.6 04/07/2025 CL 101 04/07/2025 CO2 28 04/07/2025 GLUCOSE 122 (H) 04/07/2025 BUN 13 04/07/2025 CREATININE 0.94 04/07/2025 CALCIUM 9.9 04/07/2025 PROT 7.6 04/07/2025 ALBUMIN 4.1 04/07/2025 ALBUMIN 4.1 04/07/2025 BILITOT 0.9 04/07/2025 AST 49 (H) 04/07/2025 ALT 41 04/07/2025 MG 2.1 04/07/2025 ALKPHOS 104 04/07/2025 EGFR 105 04/07/2025 Lab Results Component Value Date HGBA1C 6.3 04/07/2025 Lab Results Component Value Date TSH 0.99 04/07/2025 Lab Results Component Value Date CHOL 192 12/18/2018 TRIG 87 12/18/2018 HDL 56 12/18/2018 LDL 119 (A) 12/18/2018 IMAGING: Ultrasound guided drainage on 04/06/20259715-Tovxwirrur-sapthg drainage of recurrent medial left calf hematoma with 100 mL of serosanguineous fluid removed. Small residual hematoma noted. IMPRESSION: 1. Hematoma of leg, left, subsequent encounter 2. Hematoma of left thigh, subsequent encounter 3. Varicose veins of bilateral lower extremities with other complications 4. Impacted cerumen of left ear PLAN: So far he underwent ultrasound-guided aspiration of the hematoma for 3 times. 3 weeks ago 100 mL ofserous fluid was aspirated from left leg. He is still having left upper leg swelling with some mildtenderness. Overall he is feeling better, he is ambulating without any issues. He is having an appointment with general surgeon this week. He is also having an appointment with vascular surgery. I rec ommended him to take Tylenol as needed and avoid NSAIDs. I will give him prescription for oxycodone5 mg as needed for severe pain. Continue Lasix 20 mg daily for pedal edema. He has cerumen impaction on the left side. After obtaining consent, I irrigated the left ear with warm water and removed 90% of wax. Procedure was uneventful. He is applying for FMLA to cover the days between 01/15 to 01/18 and 02/08 to 02/12. Follow-up exam in 5 months for physical exam/sooner as needed All questions and concerns were addressed. Kiet Paul Judit verbalizes understanding and agrees with this treatment plan. Patient was reminded to call or return to the office if any new or existing problems arise. No orders of the defined types were placed in this encounter. None Elmer Sky MD on 04/27/2025 at 9:00 PM EDT Today's documentation was made using voice recognition software.This note may contain grammatical errors secondary to this software. documented in this encounter Plan of Treatment Upcoming Encounters Date Type Department Care Team (Late st Contact Info) Description 06/21/2025 3:00 PM EDT Ancillary Procedure [facility] - [address] [place] [address] 09/28/2025 4:00 PM EST Office Visit Adult Medicine [facility] [address] [place], [place] [phone] Elmer Sky MD [address] [place] [address] documented as of this encounter Visit Diagnoses Diagnosis Hematoma of leg, left, subsequent encounter- Primary Hematoma of left thigh, subsequent encounter Varicose veins of bilateral lower extremities with other complications Impacted cerumen of left ear Impacted cerumen documented in this encounter Discontinued Medications Medication Sig Discontinue Reason Start Date End Da te oxyCODONE (ROXICODONE) 5 mg immediate release tabletIndications:Hemato ma of leg, left, subsequent encounter,Hematoma of left thigh, subsequent encounter Take 1 tablet (5 mg total) by mouth 2 (two) times a day if needed for severe pain. Max Daily Amount: 10 mg Therapy completed 03/16/2025 04/27/2025 documented as of this encounter Additional Health Concerns Assessment Noted Time PHQ-9 Depression Total Score: 0 02/23/20 25 11:12 AM EDT documented as of this encounter Care Teams Stand Up Forklift Operator Relationship Specialty Start Date End Date Elmer Sky MD [address] [place] [address] PCP - General 01/14/23 documented as of this encounter
--- OUTSIDE RECORDS SUMMARY | 2025-04-29 15:30 | XMS_ITS | Encounter Summary ---
Author Organization [facility] Address [address] [place] [address] Care Team Providers Care Production Planner Name Role Phone Elmer Sky MD Primary Care Provider [phone] Reason for Visit * Reason Comments Advice Only LLE hematoma * Consultation (Routine) - Authorized Specialty Diagnoses / Procedures Referred By Contac t Referred To Contact General Surgery Diagnoses Hematoma of left lower extremity, subsequent encounter Hematoma of left thigh, subsequent encounter Sheba Herrera PA [address] [place] [address] Phone: tel: fax: Ancelmo Gonzalez DO [address] [address] Phone: tel: fax: Referral ID Status Reason Start Date Expiration Date Visits Requested Visits Authorized [id number] Authorized Specialty Services Required 04/06/2025 04/06/2026 12 12 Encounter Details Date Type Department Care Team (Late st Contact Info) Description 04/29/2025 3:30 PM EDT Consult General Surgery - [place] [address] [address] Ancelmo Gonzalez DO [address] [place] [address] Hematoma of left lower extremity, subsequent encounter; Hematoma of left thigh, subsequent encounter Social History Tobacco Use Types Packs/Day Years Used Date Smoking Tobacco: Never Smokeless Tobacco: Never Alcohol Use Standard Drinks/Week Comments Not Currently 0 (1 standard drink = 0.6 oz [...] for your loved ones. For example, child and adolescent psychologist or elderly care for an older adult? [...] Sign Reading Time Taken Comments Blood Pressure 152/87 04/29/2025 3:27 PM EDT Pulse 101 04/29/2025 3:27 PM EDT Temperature 37.1 C (98.7 F) 04/29/2025 3:27 PM EDT Respiratory Rate - - Oxygen Saturation - - Inhaled Oxygen Concentration - - Weight 201 kg (443 lb 8 oz) 04/29/2025 3:27 PM E DT Height 176.5 cm (5' 9.5 ) 04/29/2025 3:27 PM EDT Body Mass Index 64.55 04/29/2025 3:27 PM EDT documented in this encounter Plan of Treatment Upcoming Encounters Date Type Department Care Team (Late st Contact Info) Description 06/21/2025 3:00 PM EDT Ancillary Procedure [facility] [address] [facility] [address] [place] [address] 09/28/2025 4:00 PM EST Office Visit Adult Medicine [address] [phone] Elmer Sky MD [address] [place] [address] documented as of this encounter Visit Diagnoses Diagnosis Hematoma of left lower extremity, subsequent encounter Hematoma of left thigh, subsequent encounter documented in this encounter Orders Outpatient Referral Count Last Ordered Date Fir st Ordered Date AMB REFERRAL TO GENERAL SURGERY 1 documented in this encounter Additional Health Concerns Assessment Noted Time PHQ-9 Depression Total Score: 0 02/23/20 25 11:12 AM EDT documented as of this encounter Care Teams Production Planner Relationship Specialty Start Date End Date Elmer Sky MD [address] [place] [address] PCP - General 01/14/23 documented as of this encounter
--- OUTSIDE RECORDS SUMMARY | 2025-04-30 10:13 | XMS_ITS | Encounter Summary ---
Author Organization [facility] Address [address] [place] [address] Care Team Providers Care Laundry Attendant Name Role Phone Caty Gray MD Primary Care Provider Elmer Willis Primary Care Provider [phone] Encounter Details Date Type Department Care Team Description 10/30/2011 Ct Mri Technologist Report Medical Records [address] [place] [address] Mario Farrar Social History Tobacco Use Types Packs/Day Years Used Date Smoking Tobacco: Never Smokeless Tobacco: Never Alcohol Use Standard Drinks/Week Comments Yes 0 (1 standard drink = 0.6 oz pur e alcohol) occasional - once a week Sex Assigned at Date Recorded Not on file documented as of this encounter Plan of Treatment Not on file documented as of this encounter Visit Diagnoses Not on filedocumented in this encounter Care Teams Laundry Attendant Relationship Specialty Start Date End Date Caty Gray MD PCP - General 10/31/1996 01/13/23 Elmer Sky [address] [place] [address] PCP - General Internal Medicine 01/14/23 documented as of this encounter
--- OUTSIDE RECORDS SUMMARY | 2025-04-30 10:13 | XMS_ITS | Encounter Summary ---
Author Organization [facility] Address [address] [place] [address] Care Team Providers Care Inside Meter Tester Name Role Phone Caty Gray MD Primary Care Provider Elmer Willis Primary Care Provider [phone] Reason for Visit * Reason Comments other Encounter Details Date Type Department Care Team Description 12/11/1999 Telephone Allergy [address] [place] [address] Gibson Choi MD other Social History Tobacco Use Types Packs/Day Years Used Date Smoking Tobacco: Never Assessed Sex Assigned at Date Recorded Not on file documented as of this encounter Miscellaneous Notes * Telephone Encounter - 12/11/1999 2:29 PM EDTCALL RECEIVED. Contact: MOMALVAREZ - WORK [phone] MOM WOULD LIKE TO SPEAK TO YOU REGARDING HOW LONG KIET NEEDS TO HAVE HIS ALLERGY SHOTS. documented in this encounter Plan of Treatment Not on file documented as of this encounter Visit Diagnoses Not on filedocumented in this encounter Care Teams Inside Meter Tester Relationship Specialty Start Date End Date Caty Gray MD PCP - General 10/31/1996 01/13/23 Elmer Sky [address] [place] [address] PCP - General Internal Medicine 01/14/23 documented as of this encounter
--- OUTSIDE RECORDS SUMMARY | 2025-04-30 10:13 | XMS_ITS | Clinical Summary ---
Author Organization [facility] Address [address] [place] [address] Care Team Providers Care Content Strategist Name Role Phone Elmer Sky Primary Care Provider [phone] Allergies Active Allergy Reactions Severity Noted Date Comments Seasonal Allergies 04/20/2008 Medications Medication Sig Dispensed Refills Start Date End Date Status TYLENOL CAPS 500 MG OR 1 CAPSULE EVERY 4 HOURS NEEDED 0 Active cetirizine (ZYRTEC) 10 MG tablet Take 10 mg by mouth daily as needed. 0 Active fluticasone (FLONASE) 50 MCG/ACT nasal spray 2 sprays in each nostril once per day for 2 weeks. 1 Bottle 1 07/18/2020 Active trazodone (DESYREL) 50 MG tablet TAKE 1 TABLET BY MOUTH EVERY NIGHT AT BEDTIME 0 03/25/2023 Active ciclopirox (LOPROX) 0.77 % cream Apply 1 Applicator topically 2 times daily. 15 g 3 04/01/2023 Active meloxicam (MOBIC) 15 MG tablet TAKE 1 TABLET BY MOUTH DAILY 30 Tablet 0 09/23/2023 Active Active Problems Problem Noted Date Insomnia 05/07/2022 Periodic limb movement disorder (PLMD) 0 02/14/2021 ADHD (attention deficit hyperactivity di sorder) 12/25/2013 PRANAV (obstructive sleep apnea) 12/10/2013 Overview: Sleep Medicine Services now 01/2021 CPAP 8-16 cm/H2O Morbid obesity with BMI of 50.0-59.9, ad ult 10/05/2008 Immunizations Name Administration Dates Next Due DTP 02/20/1990, 6,01/07/1985, 985,1984 HIB 07/17/1986 Hepatitis B-3 Dose (<19yrs) 09/18/1996, 6,03/18/1996 Influenza (> 6 Months) 05/24/2011 MMR (Pgntlhe-Kncaw-Iqonlyy) 03/18/1996, 6 Polio (OPV) 02/20/1990, 6,1984, 985 TD ([facility]PPLIED FOR ADULT S AND CHILDREN) 11/02/2020,03/23/2009,02/11/1997 Tdap 04/20/2008 Family History Medical History Relation Name Comments Cancer of the Colon Maternal Grandfather mid 60s Arthritis Maternal Grandmother [place] Maternal Grandmother Diabetes Paternal Grandmother INSULIN Relation Name Status Comments Brother Alive 1986; obese Father Alive 1957; asthma; o bese Maternal Grandfather DM Maternal Grandmother Mother Alive 1957; DM; obese Paternal Grandfather Paternal Grandmother Social History Tobacco Use Types Packs/Day Years Used Date Smoking Tobacco: Never Passive Smoke Exposure: Never Smokeless Tobacco: Never Tobacco Cessation:Counseling Given: Not Answered Alcohol Use Standard Drinks/Week Comments Yes 0 (1 standard drink = 0.6 oz pur e alcohol) weekly 1-2 a few days a week Sex Assigned at Date Recorded Not on file Last Filed Vital Signs Vital Sign Reading Time Taken Comments Blood Pressure 138/80 04/01/2023 3:48 PM EDT Pulse 76 04/01/2023 3:48 PM EDT Temperature 36.7 C (98 F) 04/01/2023 3:48 PM EDT Respiratory Rate 16 04/01/2023 3:48 PM EDT Oxygen Saturation 97% 04/01/2023 3:48 PM EDT Inhaled Oxygen Concentration - - Weight 194.6 kg (429 lb) 05/21/2023 3:09 PM EDT Height 177.8 cm (5' 10 ) 05/21/2023 3:09 PM EDT Body Mass Index 61.56 05/21/2023 3:09 PM EDT Plan of Treatment Health Maintenance Due Date Last Done Comments Covid-19 Vaccine (#1) 01/07/1985 CHOLESTEROL SCREENING 12/19/2023 12/18/2018, 008 BASELINE HEALTH EXAM 40-64 07/10/202411/02, 12/18/2018, 12/18/2018, Additional history exists BMI CHECK/ADVISE 09/02/2024 04/01/2023, 10/2020, 02/10/2019, Additional history exists INFLUENZA (#1) 2025 05/24/2011 DTAP/TDAP/TD (9 - Td or Tdap) 11/02/2030, 03/23/2009, 04/20/2008, Additional history exists PNEUMOCOCCAL VACCINE FOR HIG H RISK PATIENTS (#1) 2049 Care Teams Content Strategist Relationship Specialty Start Date End Date Elmer Sky [address] [place] [id number] PCP - General Internal Medicine 01/14/23
--- OUTSIDE RECORDS SUMMARY | 2025-04-30 10:14 | XMS_ITS | Encounter Summary ---
Author Organization [facility] Address [address] [place] [address] Care Team Providers Care Extension Forester Name Role Phone Caty Gray MD Primary Care Provider Elmer Willis Primary Care Provider [phone] Reason for Visit * Reason Comments Asbestos Shingle Inspector Feedback Referral-Dr. Saldana Encounter Details Date Type Department Care Team Description 06/12/2004 Telephone Pediatrics - [address] [address] Lenard Mcarthur MD Asbestos Shingle Inspector Feedback (Referral-Dr. Saldana) Social History Tobacco Use Types Packs/Day Years Used Date Smoking Tobacco: Never Assessed Sex Assigned at Date Recorded Not on file documented as of this encounter Miscellaneous Notes * Telephone Encounter - 06/12/2004 3:24 PM EDTCALL RECEIVED. Contact: Ref to Dr. Saldana done and faxed to office for allergy shots Ref [id number], 30 visits, 06/05/04-06/05/05 Pt has appt 06/07/04 documented in this encounter Plan of Treatment Not on file documented as of this encounter Visit Diagnoses Not on filedocumented in this encounter Care Teams Extension Forester Relationship Specialty Start Date End Date Caty Gray MD PCP - General 10/31/1996 01/13/23 Elmer Sky [address] [place] [address] PCP - General Internal Medicine 01/14/23 documented as of this encounter
--- OUTSIDE RECORDS SUMMARY | 2025-04-30 10:14 | XMS_ITS | Encounter Summary ---
Author Organization [facility] Address [address] [place] [address] Care Team Providers Care Welder Tack Name Role Phone Caty Gray MD Primary Care Provider Elmer Willis Primary Care Provider [phone] Reason for Referral * Radiology Services - Authorized/Booked Specialty Diagnoses / Procedures Referred By Belen robert Referred To Contact Radiology Diagnoses Abdominal pain, bilateral lower quadrant Procedures CT ABD & PELVIS W/O CONTRAST Trino Singh PA-C [address] [place] [address] [address] [address] Referral ID Status Reason Start Date Expiration Date V isits Requested Visits Authorized [id number] Authorized/B ooked 09/22/2014 11/20/2014 1 1 Encounter Details Date Type Department Care Team Description 09/22/2014 Orders Only Medicine/Pediatrics - [address] [id number] Trino Singh PA-C Abdominal pain, bilateral lower quadrant (Primary Dx) Social History Tobacco Use Types Packs/Day Years Used Date Smoking Tobacco: Never Smokeless Tobacco: Never Alcohol Use Standard Drinks/Week Comments Yes 0 (1 standard drink = 0.6 oz pur e alcohol) occasional - once a week Sex Assigned at Date Recorded Not on file documented as of this encounter Plan of Treatment Not on file documented as of this encounter Results * CT ABD & PELVIS W/O CONTRAST (10/07/2014 11:09 AM EST) 10/07/2014 11:3 7 AM EST Impressions WHITE POND OTHER EXTERNAL - 10/07/2014 11:42 AM EST IMPRESSION: Small fat-containing left inguinal hernia. Colonic diverticulosis without evidence of colitis. No acute pathology seen. Narrative WHITE PONSanjay OTHER EXTERNAL - 10/07/2014 11:[address] ABD & PELVIS W/O CONTRAST HISTORY: Bilateral lower abdominal pain. PROCEDURE: Multiple axial images are obtained from the upper abdomen and pelvis. Oral contrast was administered. Coronal and sagittal sections are reformatted. PRIOR STUDIES: Abdominal plain films performed 09/21/2014. Abdominal ultrasound performed 10/30/2011. FINDINGS: Detail is limited by artifacts secondary to patient body habitus. There is a small fat-containing left inguinal hernia. Portions of the colon are not well distended, limiting assessment. No evidence of colitis. Terminal ileum is normal. Appendix is normal. There is scattered colonic diverticulosis. The unenhanced liver, pancreas, kidneys, adrenal glands, and spleen are unremarkable. Small splenule noted in the left upper abdomen. No visible urinary system calculi. The gallbladder is present. The aorta is normal in caliber. The lung bases are clear. No suspicious bone lesion seen. Degenerative changes noted in the spine. Procedure Note Jame Sebastian MD - 10/07/2014 CT ABD & PELVIS W/O CONTRAST HISTORY: Bilateral lower abdominal pain. PROCEDURE: Multiple axial images are obtained from the upper abdomen andpelvis. Oral contrast was administered. Coronal and sagittal sections are reformatted. PRIOR STUDIES: Abdominal plain films performed 09/21/2014. Abdominalultrasound performed 10/30/2011. FINDINGS: Detail is limited by artifacts secondary to patient body habitus. There brock small fat-containing left inguinal hernia. Portions of the colon are not welldistended, limiting assessment. No evidence of colitis. Terminal ileum is normal. Appendix isnormal. There is scattered colonic diverticulosis. The unenhanced liver, pancreas, kidneys, adrenal glands, and spleen areunremarkable. Small splenule noted in the left upper abdomen. No visible urinary systemcalculi. The gallbladder is present. The aorta is normal in caliber. The lung bases are clear. Nosuspicious bone lesion seen. Degenerative changes noted in the spine. IMPRESSION: Small fat-containing left inguinal hernia. Colonicdiverticulosis without evidence of colitis. No acute pathology seen. Trino Singh PA-C CT SCANS FUAD VELEZ OTHER EXTERNAL documented in this encounter Visit Diagnoses Diagnosis Abdominal pain, bilateral lower quadrant- Primary Abdominal pain, other specified site Abdominal pain, bilateral lower quadrant Abdominal pain, other specified site documented in this encounter Care Teams Welder Tack Relationship Specialty Start Date End Date Caty Gray MD PCP - General 10/31/1996 01/13/23 Elmer Sky [address] [place] [address] PCP - General Internal Medicine 01/14/23 documented as of this encounter
--- OUTSIDE RECORDS SUMMARY | 2025-04-30 10:14 | XMS_ITS | Encounter Summary ---
Author Organization [facility] Address [address] [place] [address] Care Team Providers Care Control Clerk Auditing Name Role Phone Caty Gray MD Primary Care Provider Elmer Willis Primary Care Provider [phone] Encounter Details Date Type Department Care Team Description 01/03/2022 Lehr Stripper Report Medical Records [address] [place] [address] Eyal Mcknight [address] [place] [address] Social History Tobacco Use Types Packs/Day Years [...] on filedocumented in this encounter Care Teams Control Clerk Auditing Relationship Specialty Start Date End Date Caty Gray MD PCP - General 10/31/1996 01/13/23 Elmer Sky [address] [place] [address] PCP - General Internal Medicine 01/14/23 documented as of this encounter
--- OUTSIDE RECORDS SUMMARY | 2025-04-30 10:14 | XMS_ITS | Patient Health Record ---
Author [facility] Address [address] [facility] [place]am[place]ESS[place]aiser [address] Care Team Providers Care Occupational Therapy Program Director Name Role Phone Caty Gray Primary Care Provider Nicole Watson Unavailable [phone] Allergies No Known Allergies Reason For Referral No Information Medications Medication SIG (Take, Route, Fr equency, Duration) Notes Start Date End Date Status Feldene 20 MG 1 capsule with food Orally Once a day; Duration: 30 day(s) 05/21/2022 Activ e Physical Therapy . . . 2-3x/week; Durat ion: 3-4 weeks 05/21/2022 Active traZODone HCl 50 MG 1 tablet at bedtime as needed Orally Once a day; Duration: 30 day(s) Active Social History Tobacco Use: Social History Observation Description Date Details (start date - stop date) Never Smoker NA - NA Tobacco Use/Smoking Question Answer Notes Are you a: nonsmoker Alcohol Screen Question Answer Notes Did you have a drink contain ing alcohol in the past year? Yes How often did you have a dri nk containing alcohol in the past year? Monthly or less (1 point) Points 1 Interpretation Negative Tobacco use other than smoking: Question Answer Notes Are you an other tobacco user? No Plan Of Treatment Pending Test Test Name Order Date X ray : Foot, left 3V 05/21/2022 X ray : Foot, right 3V 05/21/2022 [id number] TENDON SHEATH/LIGAMENT 1 09/02/2021 Insurance Providers Payer Name Payer Address Payer Phone Subscriber Number Group Number Insured Name Patient Relationship to Insured Coverage Start Date Coverage End Date [facility] [address] [place] [address] [phone] [id number] [place] Self - patient is the insured Medical (General) History Medical History History ICD Code covid-19 Chicken pox Joint implants/screws Surgical History Surgery Date(Month/Year) hip surgery-pinned 12/1997
--- OUTSIDE RECORDS SUMMARY | 2025-04-30 10:14 | XMS_ITS | Encounter Summary ---
Author Organization [facility] Address [address] [place] [address] Care Team Providers Care Market Intelligence Consultant Name Role Phone Caty Gray MD Primary Care Provider Elmer Willis Primary Care Provider [phone] Encounter Details Date Type Department Care Team Description 10/13/2020 Jackscrew Worker Report Medical Records [address] [place] [address] Soco Gonzalez MD Social History Tobacco Use Types Packs/Day Years [...] on filedocumented in this encounter Care Teams Market Intelligence Consultant Relationship Specialty Start Date End Date Caty Gray MD PCP - General 10/31/1996 01/13/23 Elmer Sky [address] [place] [address] PCP - General Internal Medicine 01/14/23 documented as of this encounter
--- OUTSIDE RECORDS SUMMARY | 2025-04-30 10:14 | XMS_ITS | Encounter Summary ---
Author Organization [facility] Address [address] [place] [address] Care Team Providers Care Endoscopic Technician Name Role Phone Ctay Gray MD Primary Care Provider Elmer Willis Primary Care Provider [phone] Encounter Details Date Type Department Care Team Description 01/11/2016 JUKEBOX COIN COLLECTOR/MassPat Report Medical Records [address] [place] [address] Abstract, Provider Social History Tobacco Use Types Packs/Day Years [...] on filedocumented in this encounter Care Teams Endoscopic Technician Relationship Specialty Start Date End Date Caty Gray MD PCP - General 10/31/1996 01/13/23 Elmer Sky [address] [place] [address] PCP - General Internal Medicine 01/14/23 documented as of this encounter
--- OUTSIDE RECORDS SUMMARY | 2025-04-30 10:14 | XMS_ITS | Encounter Summary ---
Author Organization [facility] Address [address] [place] [address] Care Team Providers Care Caterpillar Mechanic Name Role Phone Elmer Sky Primary Care Provider [phone] Encounter Details Date Type Department Care Team Description 05/17/2023 Steward/Stewardess Wine Report Medical Records [address] [place], [place] [address] [place] [address] Orthopedic, Surgeons Social History Tobacco Use Types Packs/Day Years Used Date Smoking Tobacco: Never Passive Smoke Exposure: Never Smokeless Tobacco: Never Alcohol Use Standard Drinks/Week Comments Yes 0 (1 standard drink = 0.6 oz pur e alcohol) weekly 1-2 a few days a week Sex Assigned at Date Recorded Not on file documented as of this encounter Plan of Treatment Not on file documented as of this encounter Visit Diagnoses Not on filedocumented in this encounter Care Teams Caterpillar Mechanic Relationship Specialty Start Date End Date Elmer Sky [address] [place], [place] [id number] PCP - General Internal Medicine 01/14/23 documented as of this encounter
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
--- OUTSIDE RECORDS SUMMARY | 2025-04-30 10:14 | XMS_ITS | Encounter Summary ---
Author Organization [facility] Address [address] [place] [address] Care Team Providers Care Pipe Covering Molder Name Role Phone Caty Gray MD Primary Care Provider Elmer Willis Primary Care Provider [phone] Encounter Details Date Type Department Care Team Description 11/10/2020 Scalping Machine Operator Report Medical Records [address] [place] [address] Soco Gonzalez MD Social History Tobacco Use Types Packs/Day Years Used Date Smoking Tobacco: Never Smokeless Tobacco: Never Alcohol Use Standard Drinks/Week Comments Yes 0 (1 standard drink = 0.6 oz pur e alcohol) weekly 1-2 a few days a week Sex Assigned at Date Recorded Not on file COVID-19 Exposure Response Date Recorded In the last month, have you been in contact with someone who was confirmed or suspected to have Coronavirus / COVID-19? No / Unsure 11/02/2020 11:23 AM EST documented as of this encounter Plan of Treatment Not on file documented as of this encounter Visit Diagnoses Not on filedocumented in this encounter Care Teams Pipe Covering Molder Relationship Specialty Start Date End Date Caty Gray MD PCP - General 10/31/1996 01/13/23 Elmer Sky [address] [place] [address] PCP - General Internal Medicine 01/14/23 documented as of this encounter
--- OUTSIDE RECORDS SUMMARY | 2025-04-30 10:14 | XMS_ITS | Encounter Summary ---
Author Organization [facility] Address [address] [place] [address] Care Team Providers Care Front Attendant Name Role Phone Caty Gray MD Primary Care Provider Elmer Willis Primary Care Provider [phone] Encounter Details Date Type Department Care Team Description 09/22/2014 Telephone Medicine/Pediatrics - [address] [phone] Trino Singh PA-C Social History Tobacco Use Types Packs/Day Years Used Date Smoking Tobacco: Never Smokeless Tobacco: Never Alcohol Use Standard Drinks/Week Comments Yes 0 (1 standard drink = 0.6 oz pur e alcohol) occasional - once a week Sex Assigned at Date Recorded Not on file documented as of this encounter Miscellaneous Notes * Telephone Encounter - Trino Sinhg PA-C - 09/22/2014 8:26 AM EST Spoke with patient and informed him all his labs are currently normal. Pt would like a CT abdomen as his pain has not improved since yesterday. I will place an order for it. documented in this encounter Plan of Treatment Not on file documented as of this encounter Visit Diagnoses Not on filedocumented in this encounter Care Teams Front Attendant Relationship Specialty Start Date End Date Caty Gray MD PCP - General 10/31/1996 01/13/23 Elmer Sky [address] [place] [id number] PCP - General Internal Medicine 01/14/23 documented as of this encounter
--- OUTSIDE RECORDS SUMMARY | 2025-04-30 10:14 | XMS_ITS | Encounter Summary ---
Author Organization [facility] Address [address] [place] [address] Care Team Providers Care Nonprofit Manager Name Role Phone Caty Gray MD Primary Care Provider Elmer Willis Primary Care Provider [phone] Encounter Details Date Type Department Care Team Description 03/22/2022 Fiber Locking Supervisor Report Medical Records [address] [place] [address] Ann Sky NP Social History Tobacco Use Types Packs/Day Years [...] on filedocumented in this encounter Care Teams Nonprofit Manager Relationship Specialty Start Date End Date Caty Gray MD PCP - General 10/31/1996 01/13/23 Elmer Sky [address] [place] [address] PCP - General Internal Medicine 01/14/23 documented as of this encounter
--- OUTSIDE RECORDS SUMMARY | 2025-04-30 10:14 | XMS_ITS | Encounter Summary ---
Author Organization [facility] Address [address] [place] [address] Care Team Providers Care Forms Examiner Name Role Phone Caty Gray MD Primary Care Provider Elmer Willis Primary Care Provider [phone] Encounter Details Date Type Department Care Team Description 06/13/2021 Inspector And Tester Report Medical Records [address] [place] [address] Eyal Mcknight [address] [place] [address] Social History Tobacco Use Types Packs/Day Years [...] on filedocumented in this encounter Care Teams Forms Examiner Relationship Specialty Start Date End Date Caty Gray MD PCP - General 10/31/1996 01/13/23 Elmer Sky [address] [place] [address] PCP - General Internal Medicine 01/14/23 documented as of this encounter
--- OUTSIDE RECORDS SUMMARY | 2025-04-30 10:14 | XMS_ITS | Encounter Summary ---
Author Organization [facility] Address [address] [place] [address] Care Team Providers Care Sheriff'S Detective Name Role Phone Caty Gray MD Primary Care Provider Elmer Willis Primary Care Provider [phone] Encounter Details Date Type Department Care Team Description 12/01/2014 GAS OR WATER METER INSTALLER/MassPat Report Medical Records [address] [place] [address] Abstract, Provider Social History Tobacco Use Types [...] on filedocumented in this encounter Care Teams Sheriff'S Detective Relationship Specialty Start Date End Date Caty Gray MD PCP - General 10/31/1996 01/13/23 Elmer Sky [address] [place] [address] PCP - General Internal Medicine 01/14/23 documented as of this encounter
--- OUTSIDE RECORDS SUMMARY | 2025-04-30 10:14 | XMS_ITS | Encounter Summary ---
Author Organization [facility] Address [address] [place] [address] Care Team Providers Care Pond Sawyer Name Role Phone Caty Gray MD Primary Care Provider Elmer Willis Primary Care Provider Encounter Details Date Type Department Care Team Description 10/27/2020 Budget Engineer Report Medical Records [address] [place] [address] Ama Reyes Social History Tobacco Use Types Packs/Day Years [...] on filedocumented in this encounter Care Teams Pond Sawyer Relationship Specialty Start Date End Date Caty Gray MD PCP - General 10/31/1996 01/13/23 Elmer Sky [address] [place] [address] PCP - General Internal Medicine 01/14/23 documented as of this encounter
--- OUTSIDE RECORDS SUMMARY | 2025-04-30 10:14 | XMS_ITS | Encounter Summary ---
Author Organization [facility] Address [address] [place] [address] Care Team Providers Care Pipe Stress Engineer Name Role Phone Caty Gray MD Primary Care Provider Elmer Willis Primary Care Provider [phone] Encounter Details Date Type Department Care Team Description 02/01/2014 Inspector And Mender Report Medical Records [address] [place] [address] Indira Becker [address] [place] [address] Social History Tobacco Use Types Packs/Day Years [...] filedocumented in this encounter Care Teams Pipe Stress Engineer Relationship Specialty Start Date End Date Caty Gray MD PCP - General 10/31/1996 01/13/23 Elmer Sky [address] [place] [address] PCP - General Internal Medicine 01/14/23 documented as of this encounter
--- OUTSIDE RECORDS SUMMARY | 2025-04-30 10:14 | XMS_ITS | Encounter Summary ---
Author Organization [facility] Address [address] [place] [address] Care Team Providers Care Frame Catcher Name Role Phone Caty Gray MD Primary Care Provider Elmer Willis Primary Care Provider [phone] Reason for Visit * Reason Onset Date Comments Medication 04/20/2019 Encounter Details Date Type Department Care Team Description 04/20/2019 Telephone General Surgery - [place] [address] [facility] [address] [place] [phone] Kaela Baldwin, MS,RDN,LDN [address] [facility] [address] [place] [phone] Medication Social History Tobacco Use Types Packs/Day Years Used Date Smoking Tobacco: Never Smokeless Tobacco: Never Alcohol Use Standard Drinks/Week Comments Yes 0 (1 standard drink = 0.6 oz pur e alcohol) weekly 1-2 a few days a week Sex Assigned at Date Recorded Not on file documented as of this encounter Miscellaneous Notes * Telephone Encounter - Caren Salcido - 04/22/2019 10:36 AM EDT Forwarded to BSR's to make appointment for patient. * Telephone Encounter - Nidia Sutton MD - 04/22/2019 10:29 AM EDT Please get appointment to discuss the benefits, alternatives and adverse effects of the medication. * Telephone Encounter - Kaela Baldwin MS,RDN,LDN - 04/20/2019 1:35 PM EDT Pt reports being hungry all the time and eating large portions. Phentermine might benefit him. documented in this encounter Plan of Treatment Not on file documented as of this encounter Visit Diagnoses Not on filedocumented in this encounter Care Teams Frame Catcher Relationship Specialty Start Date End Date Caty Gray MD PCP - General 10/31/1996 01/13/23 Elmer Sky [address] [place] [address] PCP - General Internal Medicine 01/14/23 documented as of this encounter
--- OUTSIDE RECORDS SUMMARY | 2025-04-30 10:14 | XMS_ITS | Encounter Summary ---
Author Organization [facility] Address [address] [place] [address] Care Team Providers Care Textile Worker Name Role Phone Caty Gray MD Primary Care Provider Elmer Willis Primary Care Provider [phone] Encounter Details Date Type Department Care Team Description 04/24/2017 Release of Information Medical Records [address] [place] [address] Abstract, Provider Social History Tobacco Use Types [...] on filedocumented in this encounter Care Teams Textile Worker Relationship Specialty Start Date End Date Caty Gray MD PCP - General 10/31/1996 01/13/23 Elmer Sky [address] [place] [address] PCP - General Internal Medicine 01/14/23 documented as of this encounter
--- OUTSIDE RECORDS SUMMARY | 2025-04-30 10:14 | XMS_ITS | Encounter Summary ---
Author Organization [facility] Address [address] [place] [address] Care Team Providers Care Gas Dispatcher Name Role Phone Caty Gray MD Primary Care Provider Elmer Willis Primary Care Provider Reason for Visit * Reason Onset Date Comments REFERRAL 11/11/2020 GI Encounter Details Date Type Department Care Team Description 11/11/2020 Telephone Adult Medicine [address] [address] Caty Gray MD REFERRAL (GI ) Social History Tobacco Use Types Packs/Day Years [...] AM EST documented as of this encounter Miscellaneous Notes * Telephone Encounter - Crispin Gilliam MD - 11/11/2020 3:05 PM EST Patient is going to get bariatric surgery through [facility]. I think what he needs is a copyof my last note sent to them at the end of my note I did state that he is a good candidate for the bariatric surgery. Feel free to send him a copy of my last note. Also he was going to get an EKG andlab work at [facility]. Please see if you can get a copy of those results * Telephone Encounter - Roxanne WilliamsonP.N. - 11/11/2020 3:01 PM EST Pt called need referral for weight loss gastric surgery . documented in this encounter Plan of Treatment Not on file documented as of this encounter Visit Diagnoses Not on filedocumented in this encounter Care Teams Gas Dispatcher Relationship Specialty Start Date End Date Caty Gray MD PCP - General 10/31/1996 01/13/23 Elmer Sky [address] [place] [address] PCP - General Internal Medicine 01/14/23 documented as of this encounter
--- OUTSIDE RECORDS SUMMARY | 2025-04-30 10:14 | XMS_ITS | Clinical Summary ---
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 09/10/2024 Active gabapentin (NEURONTIN) 300 MG capsule 12/08/2024 Active Active Problems Problem Noted Date Diagnosed Date Insomnia 05/07/2022 Periodic limb movement disorder (PLMD) ADHD (attention deficit hyperactivity disorder) 12/25/2013 PRANAV (obstructive sleep apnea) 12/10/2013 Overview (12/18/2024): Sleep Medicine Services now 01/2021 CPAP 8-16 cm/H2O Immunizations Immunization Administration Dates Next Due DTP 02/20/1990, 6,01/07/1985,1984,1984 EMeS-Ewx-CRD 07/17/1986 Hepatitis B 09/18/1996,04/28/1996,03/18/1996 Hib,HbOC 07/17/1986 INFLUENZA, SPLIT VIRUS, TRIV ALENT W/ PRESERVATIVE IM 05/24/2011 MMR 03/18/1996,10/12/1985 Polio - OPV 02/20/1990, 6,1984,1984 Td (adult),2 Lf Tetanus Toxo id, PF, Adsorbed 11/02/2020,03/23/2009,02/11/1997 Tdap 04/20/2008 Social History Tobacco Use Types Packs/Day Years Used Date Smoking Tobacco: Never Smokeless Tobacco: Never Tobacco Cessation:Counseling Given: Not Answered Education Answer Date Recorded Are you interested [...] on file Sexual Orientation Not on file Last Filed Vital Signs Vital Sign Reading Time Taken Comments Blood Pressure 139/73 12/18/2024 3:53 PM EDT Pulse 93 12/18/2024 3:53 PM EDT Temperature 36.8 C (98.2 F) 12/18/2024 3:53 PM EDT Respiratory Rate 18 12/18/2024 3:53 PM EDT Oxygen Saturation 97% 12/18/2024 3:53 PM EDT Inhaled Oxygen Concentration - - Weight 205.6 kg (453 lb 3.2 oz) 025 11:24 AM EDT Height 177.8 cm (5' 10 ) 12/18/2024 11: 24 AM EDT Body Mass Index 65.03 12/18/2024 11:24 AM EDT Plan of Treatment Health Maintenance Due Date Last Done Comments LIPID PANEL 1984 DEPRESSION SCREENING 1996 HEPATITIS C SCREENING 2002 HIV ONE-TIME SCREENING (18-65 YEARS) 2002 SCREENING FOR DIABETES 2019 COVID-19 VACCINE (2023- season) 2024 INFLUENZA VACCINE (#1) 2025 05/24/2011 Adult Td,Tdap Booster 11/02/2030 11/02/2020 , 03/23/2009, 04/20/2008, Additional history exists HIB VACCINES Completed 07/17/1986, 07/17/1986 SMOKING STATUS SCREENING (Once After 26 Yrs) Completed 12/18/2024 HEPATITIS A VACCINES Aged Out No long er eligible based on patient's age to complete this topic MENINGOCOCCAL VACCINES (ACWY) Aged Out No longer eligible based on patient's age to complete this topic MENINGOCOCCAL VACCINES (B) Aged Out N o longer eligible based on patient's age to complete this topic PNEUMOCOCCAL VACCINES (0-49 years) Aged Out No longer eligible based on patient's age to complete this topic Medical Devices Not on file [place] [address] [address] [facility] Care Teams Food 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 It is not the complete legal health record.[facility]
--- OUTSIDE RECORDS SUMMARY | 2025-04-30 10:15 | XMS_ITS | Clinical Summary ---
Author Organization [facility] [address] [place] [address] Address [address] [place] [address] Phone Care Team Providers Care [employer] Manager Name Role Phone Elmer Sky MD Primary Care Provider Allergies Active Allergy Reactions Criticality Noted Date Comments Other 04/20/2008 Seasonal Medications acetaminophen (TYLENOL) 500 mg capsule 1 CAPSULE EVERY 4 HOURS NEEDED Active amphetamine-de xtroamphetamin e (ADDERALL) 30 mg tablet Take 1 tablet (30 mg total) by mouth 2 times daily. 5 Active gabapentin (NEURONTIN) 300 mg capsule Take 1 capsule (300 mg total) by mouth at bedtime as needed (Insomnia). Active furosemide (LASIX) 20 mg tablet Take 1 tablet (20 mg total) by mouth 1 (one) time each day. 30 each 5 Active neomycin-polym yxin-hydrocort isone (CORTISPORIN) otic solution Administer 2 drops into the left ear 4 (four) times a day. 10 mL 5 Active cholecalcifero l (Vitamin D3) 50 mcg (2,000 unit) capsule Take 1 capsule (2,000 Units total) by mouth 1 (one) time each day. 90 capsule 1 5 Active oxyCODONE (ROXICODONE) 5 mg immediate release tabletIndicati ons:Hematoma of left thigh, subsequent encounter,Jimy fer of leg, left, subsequent encounter Take 1 tablet (5 mg total) by mouth 2 (two) times a day if needed for severe pain. Max Daily Amount: 10 mg 14 tablet 5 Active oxyCODONE (ROXICODONE) 5 mg immediate release tabletIndicati ons:Hematoma of leg, left, subsequent encounter,Jimy fer of left thigh, subsequent encounter Take 1 tablet (5 mg total) by mouth 2 (two) times a day if needed for severe pain. Max Daily Amount: 10 mg 14 tablet 5 04/27/20 25 Discontinu ed(Therapy completed) Active Problems Problem Noted Date Diagnosed Date Morbid obesity ([facility] V24, CMS/[facility] V28) 2023 Insomnia 05/07/2022 Periodic limb movement disorder (PLMD) ADHD (attention deficit hyperactivity disorder) 12/25/2013 PRANAV (obstructive sleep apnea) 12/10/2013 Overview (08/19/2024): Sleep Medicine Services now 01/2021 CPAP 8-16 cm/H2O Encounters Date Type Department Care Team Description 04/29/2025 3:30 PM EDT Consult General Surgery - [place] [facility] [address] [place] [phone] Ancelmo Gonzalez, DO Hematoma of left lower extremity, subsequent encounter; Hematoma of left thigh, subsequent encounter 04/29/2025 Telephone Adult Medicine [address] [phone] Elmer Sky MD 04/27/2025 3:30 PM EDT Office Visit Adult Medicine [address] [phone] Elmer Sky MD Hematoma of leg, left, subsequent encounter (Primary Dx); Hematoma of left thigh, subsequent encounter; Varicose veins of bilateral lower extremities with other complications; Impacted cerumen of left ear 04/23/2025 2:11 PM EDT - 04/23/2025 11:59 PM EDT Hospital Encounter [facility] Ultrasound [address] [place] [phone] Hematoma of left lower extremity, subsequent encounter; Hematoma of left thigh, subsequent encounter Discharge Disposition: Home or Self Care 04/12/[address] [phone] Sheba Herrera PA 04/12/[address] [phone] Elmer Sky MD 04/06/2025 3:30 PM EDT Office Visit [address] [phone] Sheba Herrera PA Hematoma of left lower extremity, subsequent encounter (Primary Dx); Hematoma of left thigh, subsequent encounter; Screening examination for STD (sexually transmitted disease); Chronic fatigue; Morbid obesity (CMS/HCC V24, CMS/HCC V28); Lower extremity edema; Varicose veins of both lower extremities, unspecified whether complicated; PRANAV (obstructive sleep apnea); Low testosterone; Vitamin D deficiency 04/01/[address] [phone] Elmer Sky MD 03/18/2025 2:28 PM EDT - 03/18/2025 11:59 PM EDT Hospital Encounter [facility] Ultrasound [address] [place] [phone] Hematoma of leg, left, subsequent encounter Discharge Disposition: Home or Self Care 03/16/2025 8:00 AM EDT Office Visit [address] [phone] Elmer Sky MD Hematoma of leg, left, subsequent encounter (Primary Dx); Hematoma of left thigh, subsequent encounter; Varicose veins of both lower extremities, unspecified whether complicated; Acute swimmer's ear of left side 03/15/2025 3:25 PM EDT Lab Draw Station [address] Preop examination 02/22/2025 1:30 PM EDT - 02/22/2025 11:59 PM EDT Hospital Encounter Radiology Department - [place] [address] [place], [place] [phone] Hematoma of leg, left, subsequent encounter; Hematoma of left thigh, subsequent encounter Discharge Disposition: Home or Self Care 02/22/2025 1:00 PM EDT Office Visit Adult [address] [phone] Elmer Sky MD Hospital discharge follow-up (Primary Dx); Hematoma of leg, left, subsequent encounter; Hematoma of left thigh, subsequent encounter; Varicose veins of both lower extremities, unspecified whether complicated; PRANAV (obstructive sleep apnea); Morbid obesity (CMS/HCC V24, CMS/HCC V28); Insomnia, unspecified type 02/22/2025 Telephone Adult [address] [phone] [place], [place] 02/16/2025 Telephone Adult [address] [phone] Elmer Sky MD from Last 3 Months Immunizations Name Administration Dates Next Due DTP 02/20/1990, 6,01/07/1985,1984,1984 [id number] (Pentacel) 2mo to less than 5yo 07/17/1986 Hepatitis B Pediatric (Enger ix B; Recombivax HB) to less than 20 yo 09/18/1996,04/28/1996,03/18/1996 Influenza trivalent, with preservative (Fluzone; Afluria) 6mo and older 05/24/2011 MMR, measles mumps and rubel la Live (Priorix; M-M-R II) 12mo and older 03/18/1996,10/12/1985 OPV 02/20/1990, 6,1984,1984 Td Tetanus diptheria (Tdvax) 7yo and older 11/02/2020,03/23/2009,02/11/1997 Tdap Tetanus diptheria acell ular pertussis (Boostrix; Adacel) 7yo and older 04/20/2008 Surgical History Surgery Date Site/Laterality Comments TYMPANOSTOMY TUBE PLACEMENT PROCEDURE: HISTORICAL PE TUBES; COMMENT: X 2 OTHER SURGICAL HISTORY 01/1997 PROCEDURE: NM [facility] LEAD FEM EPIPHYSIS OSTPL FEM NCK CANDICE PX; COMMENT: LEXI'S SKIN BIOPSY 06/2001 PROCEDURE: BIOPSY OF SKIN LESION; COMMENT: COMPOUND NEVUS OTHER SURGICAL HISTORY 03/25/2009 PROCEDURE: NM OPPONENSPLASTY HYPOTHENAR MUSC TR; COMMENT: Dr. Bates thumb tendon repair OTHER SURGICAL HISTORY PROCEDURE: NM PYLOROPLASTY TONSILLECTOMY PROCEDURE: HISTORICAL TONSILLECTOMY Medical History Medical History Date Comments Varicella without mention of complication AGE 4 DX:Varicella without mention of complication Historical Medical DX DX:Difficu lt walk-foot; COMMENT: TOEWALKING Nontraumatic slipped upper f emoral epiphysis DX:Nontraumatic slipped uppe r femoral epiphysis; COMMENT: [facility] Allergic rhinitis, cause unspecified DX:Allergic rhinitis, cause unspecified; COMMENT: CONJUNCTIVITIS Obesity, unspecified DX:Obesity, unspecified Morbid obesity with BMI of 6 0.0-69.9, adult ([facility] V24, [facility] V28) 10/05/2008 DX:Morbid obesity wit h BMI of 60.0-69.9, adult ([facility]) Periodic limb movement disor saranya (PLMD) 02/14/2021 DX:Periodic limb movement di sorder (PLMD) Insomnia 05/07/2022 DX:Insomnia Family History Medical History Relation Name Comments Colon cancer Maternal Grandfather mid 60s Arthritis Maternal Grandmother Heart attack Maternal Grandmother Diabetes Paternal Grandmother INSULIN Relation [...] for your loved ones. For example, child custody evaluator or elderly care for an older adult? [...] on file Sexual Orientation Not on file Obstetrics History Last Filed Vital Signs Vital Sign Reading Time Taken Comments Blood Pressure 152/87 04/29/2025 3:27 PM EDT Pulse 101 04/29/2025 3:27 PM EDT Temperature 37.1 C (98.7 F) 04/29/2025 3:27 PM EDT Respiratory Rate 18 04/06/2025 3:19 PM EDT Oxygen Saturation - - Inhaled Oxygen Concentration - - Weight 201 kg (443 lb 8 oz) 04/29/2025 3:27 PM E DT Height 176.5 cm (5' 9.5 ) 04/29/2025 3:27 PM EDT Body Mass Index 64.55 04/29/2025 3:27 PM EDT Plan of Treatment Upcoming Encounters Date Type Department Care Team (Late st Contact Info) Description 06/21/2025 3:00 PM EDT Ancillary Procedure [facility] [address] [place] [phone] 09/28/2025 4:00 PM EST Office Visit Adult Medicine [address] [phone] Elmer Sky MD [address] [place] [address] Health Maintenance Due Date Last Done Comments Cholesterol Screening (Lipid Panel) 12/19/2023 12/18/2018 COVID-19 Vaccine ( season) 2024 Influenza Vaccine (#1) 2025 05/24/2011 Social Influencers of Health Screening 02/22/2026 02/22/2025 DTaP,Tdap,and Td Vaccines (10 - Td or Tdap) 11/02/2030 11/02/2020, 03/23/2009, 04/20/2008, Additional history exists HIB Vaccines Completed 07/17/1986, 07/17/1986 IPV Vaccines Completed 02/20/1990, 07/03, 01/11/1986, Additional history exists MMR Vaccines Completed 03/18/1996, 10/12/1985 Hepatitis B Vaccines Completed 09/18/1996, 04/28/1996, 03/18/1996 Depression Screening Completed 02/22/2025 HIV Screening Completed 04/07/2025 Hepatitis C Screening Completed 04/07/2025, 012 HPV Vaccines Aged Out No longer eligi ble based on patient's age to complete this topic Hepatitis A Vaccines Aged Out No long er eligible based on patient's age to complete this topic Meningococcal ACWY Vaccine Aged Out N o longer eligible based on patient's age to complete this topic Meningococcal B Vaccine Aged Out No l onger eligible based on patient's age to complete this topic Pneumococcal Vaccine: Pediatrics (0 to 5 Years) and At-Risk Patients (6 to 49 Years) Aged Out No longer eligible based on patient's age to complete this topic RSV Immunization Patients Under 20 months Aged Out No longer eligible based on patient's age to complete this topic Varicella Vaccines Aged Out No longer eligible based on patient's age to complete this topic Procedures Procedure Name Priority Date/Time Associated Diagnosis Comments US GUIDED SOFT TISSUE FLUID DRAIN LEFT Routine 04/23/2025 3:19 PM EDT Hematoma of left lower extremity, subsequent encounter Hematoma of left thigh, subsequent encounter HIV 1, 2 ANTIBODY, P24 ANTIGEN WITH REFLEX TO DIFFERENTIATION Routine 04/07/2025 9:13 AM EDT Accidental hypodermic needlestick injury HEPATITIS C ANTIBODY Routine 04/07/2025 9:13 AM EDT Accidental hypodermic needlestick injury HEPATITIS B SCREENING PANEL Routine 04/07/2025 9:13 AM EDT Accidental hypodermic needlestick injury TREPONEMA PALLIDUM ANTIBODY WITH REFLEX TO RPR AND PARTICLE AGGLUTINATION Routine 04/07/2025 9:13 AM EDT Screening examination for STD (sexually transmitted disease) TESTOSTERONE FREE, BIOAVAILABLE AND TOTAL Routine 04/07/2025 9:13 AM EDT Chronic fatigue COMPREHENSIVE METABOLIC PANEL Routine 04/07/2025 9:13 AM EDT Hematoma of left lower extremity, subsequent encounter Hematoma of left thigh, subsequent encounter Screening examination for STD (sexually transmitted disease) Chronic fatigue Morbid obesity (CMS/HCC V24, CMS/HCC V28) Varicose veins of both lower extremities, unspecified whether complicated PRANAV (obstructive sleep apnea) THYROID STIMULATING HORMONE WITH REFLEX TO FREE T4 AND FREE T3 Routine 04/07/2025 9:13 AM EDT Hematoma of left lower extremity, subsequent encounter Hematoma of left thigh, subsequent encounter Screening examination for STD (sexually transmitted disease) Chronic fatigue Morbid obesity (CMS/HCC V24, CMS/HCC V28) Varicose veins of both lower extremities, unspecified whether complicated PRANAV (obstructive sleep apnea) MAGNESIUM Routine 04/07/2025 9:13 AM EDT Hematoma of left lower extremity, subsequent encounter Hematoma of left thigh, subsequent encounter Screening examination for STD (sexually transmitted disease) Chronic fatigue Morbid obesity (CMS/HCC V24, CMS/HCC V28) Varicose veins of both lower extremities, unspecified whether complicated PRANAV (obstructive sleep apnea) VITAMIN B12 Routine 04/07/2025 9:13 AM EDT Hematoma of left lower extremity, subsequent encounter Hematoma of left thigh, subsequent encounter Screening examination for STD (sexually transmitted disease) Chronic fatigue Morbid obesity (CMS/HCC V24, CMS/HCC V28) Varicose veins of both lower extremities, unspecified whether complicated PRANAV (obstructive sleep apnea) VITAMIN D 25 HYDROXY Routine 04/07/2025 9:13 AM EDT Hematoma of left lower extremity, subsequent encounter Hematoma of left thigh, subsequent encounter Screening examination for STD (sexually transmitted disease) Chronic fatigue Morbid obesity (CMS/HCC V24, CMS/HCC V28) Varicose veins of both lower extremities, unspecified whether complicated PRANAV (obstructive sleep apnea) CHLAMYDIA TRACHOMATIS AND NEISSERIA GONORRHOEAE PCR Routine 04/07/2025 9:13 AM EDT Screening examination for STD (sexually transmitted disease) CBC WITH AUTO DIFFERENTIAL Routine 04/07/2025 9:12 AM EDT Hematoma of left lower extremity, subsequent encounter Hematoma of left thigh, subsequent encounter Screening examination for STD (sexually transmitted disease) Chronic fatigue Morbid obesity (CMS/HCC V24, CMS/HCC V28) Varicose veins of both lower extremities, unspecified whether complicated PRANAV (obstructive sleep apnea) HEMOGLOBIN A1C Routine 04/07/2025 9:12 AM EDT Hematoma of left lower extremity, subsequent encounter Hematoma of left thigh, subsequent encounter Screening examination for STD (sexually transmitted disease) Chronic fatigue Morbid obesity (CMS/HCC V24, CMS/HCC V28) Varicose veins of both lower extremities, unspecified whether complicated PRANAV (obstructive sleep apnea) CBC AND DIFFERENTIAL Routine 04/07/2025 9:12 AM EDT Hematoma of left lower extremity, subsequent encounter Hematoma of left thigh, subsequent encounter Screening examination for STD (sexually transmitted disease) Chronic fatigue Morbid obesity (CMS/HCC V24, CMS/HCC V28) Varicose veins of both lower extremities, unspecified whether complicated PRANAV (obstructive sleep apnea) US DRAIN FLUID CATH PERIT/RETRO PERC Routine 03/18/2025 3:21 PM EDT Hematoma of leg, left, subsequent encounter CBC WITH AUTO DIFFERENTIAL Routine 03/15/2025 3:28 PM EDT Preop examination CBC AND DIFFERENTIAL Routine 03/15/2025 3:28 PM EDT Preop examination PROTHROMBIN TIME WITH INR Routine 03/15/2025 3:28 PM EDT Preop examination ACTIVATED PARTIAL THROMBOPLASTIN TIME Routine 03/15/2025 3:28 PM EDT Preop examination US EXTREMITY NONVASCULAR LIMITED LEFT STAT 02/22/2025 1:57 PM EDT Hematoma of leg, left, subsequent encounter Hematoma of left thigh, subsequent encounter LIPID PANEL Routine 12/18/2018 from Last 3 Months or Most Recently Relevant to Health Maintenance Results * US Guided Soft Tissue Fluid Drain Left (04/23/2025 3:19 PM EDT) Anatomical Region Laterality Modality Body Left Ultrasound 04/23/2025 3:23 PM EDT Impressions 04/23/2025 3:27 PM EDT Ultrasound-guided drainage of recurrent medial left calf hematoma with 100 mL of serosanguineous fluid removed. Small residual hematoma noted. -------- FINAL REPORT -------- Dictated By: Eric Way Dictated Date: 04/23/2025 15:23 ET Assigned Physician: Eric Way Reviewed and Electronically Signed By: Eric Way Signed Date: 04/23/2025 15:27 ET Workstation ID: [id number] Transcribed By: Self Edit Transcribed Date: 04/23/2025 15:23 ET Narrative 04/23/2025 3:27 PM EDT INDICATION: Recurrent medial left calf hematoma PROCEDURE: Ultrasound-guided drainage prior relevant studies: March 18, 2025 MEDICATIONS: Local anesthesia: 5 cc of 1% buffered lidocaine administered subcutaneously. Sedation: none TECHNIQUE: Multiple ultrasound images obtained of the left calf medially and lateral left lower thigh. Recurrent hematoma noted along the medial aspect of the left calf with hypoechoic components. The collection measures 8 cm x 4 cm sagittally. Linear collection noted along the left lower thigh without significant fluid component. Decision made to perform drainage of the medial calf collection. Informed consent was obtained after the risks, benefits and alternatives particularly to procedure were discussed in detail. Any questions were answered in detail. Informed consent was signed by the patient/patient's proxy and provider. Timeout was performed as per hospital protocol acknowledged by the staff present. Appropriate area the skin was marked, draped and prepped. Local anesthetic administered. 5 Chinese one-step catheter advanced to the collection. Under ultrasound guidance the catheter was redirected into multiple hypoechoic components/fluid pockets. A total of 100 mL of serosanguineous fluid removed. Residual collection measures 7 cm x 1.5 cm with resolved hypoechoic components. Procedure Note Eric Way MD - 04/23/2025 INDICATION: Recurrent medial left calf hematoma PROCEDURE: Ultrasound-guided drainage prior relevant studies: March 18, 2025 MEDICATIONS: Local anesthesia: 5 cc of 1% buffered lidocaine administeredsubcutaneously. Sedation: none TECHNIQUE: Multiple ultrasound images obtained of the left calf mediallyand lateral left lower thigh. Recurrent hematoma noted along the medialaspect of the left calf with hypoechoic components. The collectionmeasures 8 cm x 4 cm sagittally. Linear collection noted along the leftlower thigh without significant fluid component. Decision made to perform drainage of the medial calf collection. Informed consent was obtained after the risks, benefits and alternativesparticularly to procedure were discussed in detail. Any questions wereanswered in detail. Informed consent was signed by the patient/patient'sproxy and provider. Timeout was performed as per hospital protocol acknowledged by the staffpresent. Appropriate area the skin was marked, draped and prepped. Local anestheticadministered. 5 Chinese one-step catheter advanced to the collection. Underultrasound guidance the catheter was redirected into multiple hypoechoiccomponents/fluid pockets. A total of 100 mL of serosanguineous fluidremoved. Residual collection measures 7 cm x 1.5 cm with resolvedhypoechoic components. IMPRESSION: Ultrasound-guided drainage of recurrent medial left calf hematoma with 100mL of serosanguineous fluid removed. Small residual hematoma noted. -------- FINAL REPORT -------- Dictated By: Eric Way Dictated Date: 04/23/2025 15:23 ET Assigned Physician: Eric Way Reviewed and Electronically Signed By: Eric Way Signed Date: 04/23/2025 15:27 ET Workstation ID: [id number] Transcribed By: Self Edit Transcribed Date: 04/23/2025 15:23 ET us Sheba DALEY IMG US PROCEDURES Final Result * Hepatitis C antibody (04/07/2025 9:13 AM EDT) Hepatitis C Antibody Negative Negative LAB CHEMISTRY METHOD 04/07/2025 3:46 PM EDT [facility] Blood Venous blood specimen / Unknown Venipuncture / Unknown 04/07/2025 9:13 AM EDT 04/07/2025 9:13 AM EDT us Elmer Sky MD LAB BLOOD ORDERABLES Final Result [facility] [address] [place] [address], [place] [phone] * HIV 1,2 antibody, p24 antigen with reflex to differentiation (04/07/2025 9:13 AM EDT) HIV Combo AB/AG Negative Negative LAB CHEMISTRY METHOD 04/07/2025 3:47 PM EDT [facility] Blood Venous blood specimen / Unknown Venipuncture / Unknown 04/07/2025 9:13 AM EDT 04/07/2025 9:13 AM EDT Narrative [facility] - 04/07/2025 3:47 PM EDT This assay is a 4th generation assay allowing for earlier detection of HIV infection by detecting the presence of the HIV-1 p24 antigen as well as the traditional antibodies to HIV type 1 (including group O) and type 2. Use of a 4th generation assay is the current CDC recommendation for HIV screening. Elmer Sky MD LAB BLOOD ORDERABLES Final Result Performing Organization Address City/[facility]/ZIP Co de Phone Number [facility] [address] [place] [address], [place] [phone] * Treponema pallidum antibody with reflex to RPR and particle agglutination (04/07/2025 9:13 AM EDT) T. Pallidum Antibodies Negative Negative LAB CHEMISTRY METHOD 04/07/2025 4:50 PM EDT [facility] Blood Venous blood specimen / Unknown Venipuncture / Unknown 04/07/2025 9:13 AM EDT 04/07/2025 9:13 AM EDT Sheba DALEY LAB BLOOD ORDERABLES Fin al Result [facility] [address] [place] [address], [place] [phone] * Thyroid stimulating hormone with reflex to free t4 and free t3 (04/07/2025 9:13 AM EDT) TSH 0.99 0.40 - 4.00 mcIU/mL LAB CHEMISTRY METHOD 04/07/2025 4:38 PM EDT [facility] Blood Venous blood specimen / Unknown Venipuncture / Unknown 04/07/2025 9:13 AM EDT 04/07/2025 9:13 AM EDT Sheba DALEY LAB BLOOD ORDERABLES Fin al Result [facility] [address] [place] [address], * (ABNORMAL) Testosterone free, bioavailable and total (04/07/2025 9:13 AM EDT) Pathologist [facility] Testosterone 176(L) 229 - 902 ng/dL LAB CHEMISTRY METHOD 04/07/2025 4:38 PM EDT [facility] Testosterone, Free 4.2(L) 4.6 - 22.4 ng/dL LAB CHEMISTRY METHOD 04/07/2025 4:38 PM [facility] Testosterone, Bioavailable 94(L) 110 - 575 ng/dL LAB CHEMISTRY METHOD 04/07/2025 4:38 PM T [facility] Sex Hormone Binding 22.4 See Comment nmol/L LAB CHEMISTRY METHOD 04/07/2025 4:38 PM T [facility] Comment: FEMALES: pre-menopausal 10.8 - >180 post-menopausal 23.2 - 159.1 MALES: 21-49 years 14.6 - 94.6 50-89 years 21.6 - 113.1 CHILDREN: No established reference range Over the counter supplements containing high doses of biotin may interfere with this assay. If interference is suspected, patients should be retested after refraining from biotin supplements for 72 hours. Albumin 4.1 3.2 - 5.0 g/dL LAB CHEMISTRY METHOD 04/07/2025 4:38 PM EDT [facility] Blood Venous blood specimen / Unknown Venipuncture / Unknown 04/07/2025 9:13 AM EDT 04/07/2025 9:13 AM EDT Sheba DALEY LAB BLOOD ORDERABLES Fin al Result Performing Organization Address City/[facility]/ZIP Co de Phone Number [facility] [address] [place] [address], [place] [phone] * (ABNORMAL) Hepatitis B screening panel (04/07/2025 9:13 AM EDT) Pathologist [facility] Hepatitis B Surface Ag Negative Negative LAB CHEMISTRY METHOD 04/07/2025 3:47 PM EDT [facility] Hep B Core Total Ab Negative Negative LAB CHEMISTRY METHOD 04/07/2025 3:47 PM EDT [facility] Hepatitis B Surface Ab Positive(A) Negative LAB CHEMISTRY METHOD 04/07/2025 3:47 PM EDT [facility] Blood Venous blood specimen / Unknown Venipuncture / Unknown 04/07/2025 9:13 AM EDT 04/07/2025 9:13 AM EDT Elmer Sky MD LAB BLOOD ORDERABLES Final Result Performing Organization Address City/[facility]/ZIP Co de Phone Number [facility] [address] [place] [address], [place] [phone] * Chlamydia trachomatis and Neisseria gonorrhoeae molecular study (04/07/2025 9:13 AM EDT) Pathologist [facility] Neisseria gonorrhoeae PCR Negative Negative LAB MOLECULAR DIAGNOSTICS METHOD 04/07/2025 4:16 PM EDT [facility] Chlamydia trachomatis PCR Negative Negative LAB MOLECULAR DIAGNOSTICS METHOD 04/07/2025 4:16 PM EDT [facility] Urine Urine specimen from urethra / Unknown Non-blood Collection / Unknown 04/07/2025 9:13 AM EDT 04/07/2025 9:13 AM EDT Sheba DALEY LAB MICROBIOLOGY - GENER AL ORDERABLES Final Result Performing Organization Address [facility] Co de Phone Number [facility] [address] [place] [address], [place] [phone] * (ABNORMAL) Vitamin D 25 hydroxy (04/07/2025 9:13 AM EDT) Vit D, 25-Hydroxy 18.7(L) 30.0 - 80.0 ng/mL LAB CHEMISTRY METHOD 04/07/2025 3:06 PM EDT [facility] Blood Venous blood specimen / Unknown Venipuncture / Unknown 04/07/2025 9:13 AM EDT 04/07/2025 9:13 AM EDT Sheba DALEY LAB BLOOD ORDERABLES Fin al Result Performing Organization Address [facility] de Phone Number [facility] [address] [place] [address], [place] [phone] * Magnesium (04/07/2025 9:13 AM EDT) Magnesium 2.1 1.9 - 2.6 mg/dL LAB CHEMISTRY METHOD 04/07/2025 12:40 PM EDT [facility] Blood Venous blood specimen / Unknown Venipuncture / Unknown 04/07/2025 9:13 AM EDT 04/07/2025 9:13 AM EDT Sheba DALEY LAB BLOOD ORDERABLES Fin al Result Performing Organization Address [facility]/ZIP Co de Phone Number [facility] [address] [place] [address], [place] [phone] * Vitamin B12 (04/07/2025 9:13 AM EDT) Pathologist [facility] Vitamin B-12 443 250 - 900 pcg/mL LAB CHEMISTRY METHOD 04/07/2025 1:01 PM [facility] Blood Venous blood specimen / Unknown Venipuncture / Unknown 04/07/2025 9:13 AM EDT 04/07/2025 9:13 AM EDT Sheba DALEY LAB BLOOD ORDERABLES Fin al Result [facility] [address] [place] [address], * (ABNORMAL) Comprehensive metabolic panel (04/07/2025 9:13 AM EDT) [facility] Sodium 135 133 - 145 mmol/L LAB CHEMISTRY METHOD 04/07/2025 12:40 PM [facility] Potassium 4.6 3.5 - 5.5 mmol/L LAB CHEMISTRY METHOD 04/07/2025 12:40 PM [facility] Chloride 101 96 - 110 mmol/L LAB CHEMISTRY METHOD 04/07/2025 12:40 PM [facility] CO2 28 21 - 32 mmol/L LAB CHEMISTRY METHOD 04/07/2025 12:40 PM [facility] Anion Gap 6 3 - 11 LAB CHEMISTRY METHOD 04/07/2025 12:40 PM [facility] Glucose 122(H) 70 - 100 mg/dL LAB CHEMISTRY METHOD 04/07/2025 12:40 PM [facility] BUN 13 5 - 25 mg/dL LAB CHEMISTRY METHOD 04/07/2025 12:40 PM [facility] Creatinine 0.94 0.70 - 1.30 mg/dL LAB CHEMISTRY METHOD 04/07/2025 12:40 PM [facility] eGFR 105 >=60 mL/min/1. 73m2 LAB CHEMISTRY METHOD 04/07/2025 12:40 PM [facility] Comment:Calculation based on the Chronic Kidney Disease Epidemiology Collaboration (CKD-EPI) equation refit without adjustment for race. BUN/Creatinine Ratio 13.8 LAB CHEMISTRY METHOD 04/07/2025 12:40 PM [facility] Calcium 9.9 8.5 - 10.5 mg/dL LAB CHEMISTRY METHOD 04/07/2025 12:40 PM [facility] AST (SGOT) 49(H) 10 - 42 unit/L LAB CHEMISTRY METHOD 04/07/2025 12:40 PM [facility] ALT (SGPT) 41 10 - 60 unit/L LAB CHEMISTRY METHOD 04/07/2025 12:40 PM [facility] Alkaline Phosphatase 104 42 - 121 unit/L LAB CHEMISTRY METHOD 04/07/2025 12:40 PM [facility] Total Protein 7.6 6.0 - 8.0 g/dL LAB CHEMISTRY METHOD 04/07/2025 12:40 PM [facility] Albumin 4.1 3.2 - 5.0 g/dL LAB CHEMISTRY METHOD 04/07/2025 12:40 PM [facility] Total Bilirubin 0.9 0.0 - 1.4 mg/dL LAB CHEMISTRY METHOD 04/07/2025 12:40 PM [facility] Blood Venous blood specimen / Unknown Venipuncture / Unknown 04/07/2025 9:13 AM EDT 04/07/2025 9:13 AM EDT us Sheba DALEY LAB BLOOD ORDERABLES Fin al Result [facility] [address] [place] [address], * CBC auto differential (04/07/2025 9:12 AM EDT) Only the most recent of2 resultswithin the time period is included. [facility] Signature WBC 7.5 4.8 - 10.8 K/mcL LAB HEMETOLOGY METHOD 04/07/2025 10:42 AM [facility] RBC 5.40 4.50 - 5.50 M/mcL LAB HEMETOLOGY METHOD 04/07/2025 10:42 AM [facility] Hemoglobin 15.0 13.5 - 17.5 g/dL LAB HEMETOLOGY METHOD 04/07/2025 10:42 AM [facility] Hematocrit 46.2 42.0 - 54.0 % LAB HEMETOLOGY METHOD 04/07/2025 10:42 AM [facility] MCV 86.4 79.0 - 98.0 FL LAB HEMETOLOGY METHOD 04/07/2025 10:42 AM [facility] MCH 28.0 27.0 - 32.0 pcg LAB HEMETOLOGY METHOD 04/07/2025 10:42 AM [facility] MCHC 32.5 32.0 - 37.0 g/dL LAB HEMETOLOGY METHOD 04/07/2025 10:42 AM [facility] RDW 13.0 11.0 - 15.0 % LAB HEMETOLOGY METHOD 04/07/2025 10:42 AM [facility] Platelets 274 130 - 400 K/mcL LAB HEMETOLOGY METHOD 04/07/2025 10:42 AM [facility] MPV 9.1 7.0 - 11.0 FL LAB HEMETOLOGY METHOD 04/07/2025 10:42 AM [facility] NRBC 0.0 <1.0 % LAB HEMETOLOGY METHOD 04/07/2025 10:42 AM [facility] NRBC Absolute 0.00 <0.10 K/mcL LAB HEMETOLOGY METHOD 04/07/2025 10:42 AM T [facility] Neutrophils Relative 59.3 % LAB HEMETOLOGY METHOD 04/07/2025 10:42 AM [facility] Lymphocytes Relative 28.6 % LAB HEMETOLOGY METHOD 04/07/2025 10:42 AM [facility] Monocytes Relative 8.0 % LAB HEMETOLOGY METHOD 04/07/2025 10:42 AM [facility] Eosinophils Relative 3.3 % LAB HEMETOLOGY METHOD 04/07/2025 10:42 AM [facility] Basophils Relative 0.5 % LAB HEMETOLOGY METHOD 04/07/2025 10:42 AM [facility] Immature Granulocytes Relative 0.3 % LAB HEMETOLOGY METHOD 04/07/2025 10:42 AM [facility] Neutrophils Absolute 4.43 1.50 - 7.00 K/mcL LAB HEMETOLOGY METHOD 04/07/2025 10:42 AM [facility] Lymphocytes Absolute 2.14 1.00 - 5.00 K/mcL LAB HEMETOLOGY METHOD 04/07/2025 10:42 AM [facility] Monocytes Absolute 0.60 0.20 - 1.00 K/mcL LAB HEMETOLOGY METHOD 04/07/2025 10:42 AM [facility] Eosinophils Absolute 0.25 0.00 - 0.50 K/mcL LAB HEMETOLOGY METHOD 04/07/2025 10:42 AM [facility] Basophils Absolute 0.04 0.00 - 0.20 K/mcL LAB HEMETOLOGY METHOD 04/07/2025 10:42 AM [facility] Immature Granulocytes Absolute 0.02 0.00 - 0.03 K/mcL LAB HEMETOLOGY METHOD 04/07/2025 10:42 AM EDT [facility] Blood Venous blood specimen / Unknown Venipuncture / Unknown 04/07/2025 9:12 AM EDT 04/07/2025 9:12 AM EDT Sheba DALEY LAB BLOOD ORDERABLES Fin al Result Performing Organization Address [facility] de Phone Number [facility] [address] [place] [address], [place] [phone] * Hemoglobin A1c (04/07/2025 9:12 AM EDT) [facility] Signature Hemoglobin A1C 6.3 <6.5 % LAB CHEMISTRY METHOD 04/07/2025 12:29 PM EDT [facility] Mean Bld Glu Estim. 134 mg/dL LAB CHEMISTRY METHOD 04/07/2025 12:29 PM EDT [facility] Blood Venous blood specimen / Unknown Venipuncture / Unknown 04/07/2025 9:12 AM EDT 04/07/2025 9:12 AM EDT Sheba Herrera PA LAB BLOOD ORDERABLES Fin al Result Performing Organization Address [facility] de Phone Number [facility] [address] [place] [address], [place] [phone] * US Drain Fluid Cath Perit/Retro Perc (03/18/2025 3:21 PM EDT) Anatomical Region Laterality Modality Ultrasound 03/18/2025 3:27 PM EDT Narrative 03/18/2025 3:51 PM EDT INDICATION: Left medial lower leg hematoma TECHNIQUE: Written informed consent obtained. Patient placed supine on the ultrasound stretcher. Multiple images obtained of the left lower leg. After review of the images, the appropriate area of skin was localized under real-time ultrasound. This region was draped and prepped in the usual sterile fashion. 2% buffered lidocaine was used as a local anesthetic. Under real-time ultrasound guidance, needle aspiration was performed using 5 Chinese centesis catheter. A total of 210 cc of clear brown fluid was obtained. Patient was instructed to utilize compression to the lower leg to prevent recurrence. The patient tolerated the procedure well and left the department in stable condition without immediate complications. FINDINGS: Images obtained during needle aspiration demonstrate tip of the centesis catheter within the collection. The collection is significantly smaller status post aspiration. CONCLUSION: Ultrasound-guided left lower leg hematoma aspiration. -------- FINAL REPORT -------- Dictated By: Maria Fernanda Carvalho Dictated Date: 03/18/2025 15:27 ET Assigned Physician: Puma Chow Reviewed and Electronically Signed By: Puma Chow Signed Date: 03/18/2025 15:51 ET Workstation ID: [id number] Transcribed By: Self Edit Transcribed Date: 03/18/2025 15:34 ET Resident/PA/CASINO ATTENDANT: Maria Fernanda Carvalho Procedure Note Puma Chow MD - 03/18/2025 INDICATION: Left medial lower leg hematoma TECHNIQUE: Written informed consent obtained. Patient placed supine on theultrasound stretcher. Multiple images obtained of the left lower leg.After review of the images, the appropriate area of skin was localizedunder real-time ultrasound. This region was draped and prepped in theusual sterile fashion. 2% buffered lidocaine was used as a localanesthetic. Under real-time ultrasound guidance, needle aspiration wasperformed using 5 Chinese centesis catheter. A total of 210 cc of clearbrown fluid was obtained. Patient was instructed to utilize compression tothe lower leg to prevent recurrence. The patient tolerated the procedurewell and left the department in stable condition without immediatecomplications. FINDINGS: Images obtained during needle aspiration demonstrate tip of the centesiscatheter within the collection. The collection is significantly smallerstatus post aspiration. CONCLUSION: Ultrasound-guided left lower leg hematoma aspiration. -------- FINAL REPORT -------- Dictated By: Maria Fernanda Carvalho Dictated Date: 03/18/2025 15:27 ET Assigned Physician: Puma Chow Reviewed and Electronically Signed By: Puma Chow Signed Date: 03/18/2025 15:51 ET Workstation ID: [id number] Transcribed By: Self Edit Transcribed Date: 03/18/2025 15:34 ET Resident/PA/CASINO ATTENDANT: Maria Fernanda Carvalho Elmer Sky MD IMG US PROCEDURES Final Res ult * Activated partial thromboplastin time (03/15/2025 3:28 PM EDT) aPTT 30.0 24.1 - 39.3 sec LAB COAGULATION METHOD 03/15/2025 6:16 PM EDT [facility] Blood Venous blood specimen / Unknown Venipuncture / Unknown 03/15/2025 3:28 PM EDT 03/15/2025 3:28 PM EDT Elmer Sky MD LAB BLOOD ORDERABLES Final Result Performing Organization Address [facility]/ZIP Co de Phone Number [facility] [address] [place] [address], [place] [phone] * Prothrombin time with INR (03/15/2025 3:28 PM EDT) Protime 12.2 10.6 - 13.9 sec LAB COAGULATION METHOD 03/15/2025 6:16 PM EDT [facility] INR 1.0 LAB COAGULATION METHOD 03/15/2025 6:16 PM EDT [facility] Blood Venous blood specimen / Unknown Venipuncture / Unknown 03/15/2025 3:28 PM EDT 03/15/2025 3:28 PM EDT Elmer Sky MD LAB BLOOD ORDERABLES Final Result Performing Organization Address [facility]/ZIP Co de Phone Number [facility] [address] [place] [address], [place] [phone] * US Extremity Nonvascular Limited Left (02/22/2025 1:57 PM EDT) Anatomical Region Laterality Modality Extremity Left Ultrasound 02/24/2025 1:00 PM EDT Impressions 02/24/2025 1:19 PM EDT Medial left proximal calf: Reaccumulation of complex fluid collection/hematoma, measuring 12.2 x 5.3 x 7.8 cm. Anterior left thigh: No residual fluid collection/hematoma identified. -------- FINAL REPORT -------- Dictated By: Jace Manzanares Dictated Date: 02/24/2025 13:00 ET Assigned Physician: Jace Manzanares Reviewed and Electronically Signed By: Jace Manzanares Signed Date: 02/24/2025 13:19 ET Workstation ID: [id number] Transcribed By: Self Edit Transcribed Date: 02/24/2025 13:09 ET Narrative 02/24/2025 1:19 PM EDT US EXTREMITY NONVASCULAR LIMITED LEFT COMPARISON: CT of the left lower extremity on February 08, 2025. Images of the ultrasound-guided aspiration of the left leg fluid collection on February 11, 2025. Images of the ultrasound-guided aspiration of the left lateral thigh collection on February 10, 2025. These studies were performed at [facility]. HISTORY: Left thigh and leg hematoma due to trauma, seroma, follow up exam/ last scan at [facility] - According to CT report, 2.1 x 7.4 by at least 10.2 cm fluid collection in the anterolateral thigh and 2.0 x 6.3 x 12.0 cm collection more inferiorly. Under ultrasound guidance, 65 cc of serosanguineous fluid was aspirated. -According to the CT report, 10.1 x 4.3 x 24.5 cm hypodense collection in the medial proximal lower leg. Under ultrasound guidance, 285 cc of dark signal within this fluid was aspirated. Postprocedure scan showed a small amount of debris remaining in the collection, likely clot. FINDINGS: Targeted ultrasound was performed at the 2 locations: -Medial left proximal calf: Complex fluid collection with multiple debris and septations measures approximately 12.2 x 5.3 x 7.8 cm. No abnormal vascularity demonstrated with color Doppler evaluation. -Anterior left thigh: No residual fluid collection identified. Procedure Note Jace Manzanares MD - 02/24/2025 US EXTREMITY NONVASCULAR LIMITED LEFT COMPARISON: CT of the left lower extremity on February 08, 2025. Images of theultrasound-guided aspiration of the left leg fluid collection on January. Images of the ultrasound-guided aspiration of the left lateral thighcollection on February 10, 2025. These studies were performed at [facility]. HISTORY: Left thigh and leg hematoma due to trauma, seroma, follow upexam/ last scan at [facility] - According to CT report, 2.1 x 7.4 by at least 10.2 cm fluid collectionin the anterolateral thigh and 2.0 x 6.3 x 12.0 cm collection moreinferiorly. Under ultrasound guidance, 65 cc of serosanguineous fluid wasaspirated. -According to the CT report, 10.1 x 4.3 x 24.5 cm hypodense collection inthe medial proximal lower leg. Under ultrasound guidance, 285 cc of darksignal within this fluid was aspirated. Postprocedure scan showed a smallamount of debris remaining in the collection, likely clot. FINDINGS: Targeted ultrasound was performed at the 2 locations: -Medial left proximal calf: Complex fluid collection with multiple debrisand septations measures approximately 12.2 x 5.3 x 7.8 cm. No abnormalvascularity demonstrated with color Doppler evaluation. -Anterior left thigh: No residual fluid collection identified. IMPRESSION: Medial left proximal calf: Reaccumulation of complex fluidcollection/hematoma, measuring 12.2 x 5.3 x 7.8 cm. Anterior left thigh: No residual fluid collection/hematoma identified. -------- FINAL REPORT -------- Dictated By: Jcae Manzanares Dictated Date: 02/24/2025 13:00 ET Assigned Physician: Jace Manzanares Reviewed and Electronically Signed By: Jace Manzanares Signed Date: 02/24/2025 13:19 ET Workstation ID: [id number] Transcribed By: Self Edit Transcribed Date: 02/24/2025 13:09 ET us Elmer Sky MD IMG US PROCEDURES Final Res ult * (ABNORMAL) Lipid panel (12/18/2018) LDL/HDL Ratio 3 0 - 4 Triglycerides 87 0 - 150 mg/dL Cholesterol 192 0 - 200 mg/dL HDL 56 >=40 mg/dL LDL Cholesterol 119(A) 0 - 100 mg/dL Blood Venous blood specimen / Unknown us Historical Provider LAB BLOOD ORDERABLES Fabi l Result from Last 3 Months or Most Recently Relevant to Health Maintenance [place] [address] [facility] Care Teams [employer] Manager Relationship Specialty Start Date End Date Elmer Sky MD [address] [place] [phone] PCP - General 01/14/23
--- NOTE | 2025-04-30 13:07 | A.OFFVIS_ITS ---
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 Allergies Seasonal Allergies Allergy (Severe, Verified 04/30/25 13:08) Sneezing Medication List - Last Reconciled 04/30/25 by Constantine Miranda MD acetaminophen (Tylenol) 325 mg PO QID PRN dextroamphetamine-amphetamine 30 mg 1 tab PO BID loratadine (Claritin) 10 mg PO DAILY multivitamin 1 tab PO DAILY HPI HPI 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: Details: Start time: 1pm, End time: 1.40pm ?I spent 35 minutes speaking with the patient on the phone plus an additional 5 minutes reviewing and updating records for a total of 40 minutes HPI Comments Details: Previous weight loss efforts: low carb diet, low calorie diet Wakes up: 5.30am, sleeps: 9pm Breakfast: 7am (yogurt) Lunch: 11am (sandwich and [employer] or [employer] protein bar) Dinner: 6-7pm (chicken, steak) Snacks: none Exercise: has a home stationary bike Beverages: Coffee: 1 iced coffee (buys), Tea: none, Soda: none, Juice: none, ETOH: 2/wk (6 beers) PFSH Medical History Sleep apnea with use of continuous positive airway pressure (CPAP) GERD (gastroesophageal reflux disease) ADHD Morbid obesity due to excess calories Surgical History History of eye surgery History of surgery on extremity History of hip surgery History of tonsillectomy and adenoidectomy History of placement of ear tubes Family History (Updated 04/05/25 @ 15:31 by Mamie White CMA) Mother Diabetes Father Acute arthritis Brother No problems noted. Brother No problems noted. Maternal Grandfather Colon cancer Social History (Updated 04/05/25 @ 15:31 by Mamie White CMA) Alcohol intake: current Alcohol intake frequency: a few times a week Alcohol type: beer Patient Tobacco Use Status: Never used Tobacco Telehealth Telehealth Telehealth Platform: Telephone Location of provider rendering services: practice address Location of patient: address on file Patient Identification confirmed using: Name, : Yes Telehealth method: voice only Patient verbally consented to treatment: Yes Patient verbally consented to billing insurance company: Yes Patient informed of any privacy concerns related to visit: Yes Minutes spent on Phone/Video with Pt.: 40 Assessment & Plan Assessment & Plan (1) Morbid obesity due to excess calories: Code(s): E66.01 - Morbid (severe) obesity due to excess calories Category: Medical Plan: 1.? Plan for lap sleeve gastrectomy. If diaphragmatic or ventral hernias are present at time of surgery, these will be repaired laparoscopically as well. I emphasized the importance of close follow-up, adherence to instructions and good communication. The surgery does not replace the need to change your lifestlyle which is the cause of the obesity problem. The surgery provides the motivation to try again to change your lifestyle, it reduces the appetite and make the transition to a better lifestyle easier and doubles the amount of weight you would lose compared to doing the lifestyle change without the surgery. You will need to be on a liquid diet with protein shakes for 2 weeks before surgery to maximize weight loss and boost your nutritional status to recover better from surgery and also for the first two weeks after surgery to let the stomach heal before we introduce other foods. After the first 2 weeks we will introduce protein bars and soft foods like scrambled eggs, cottage cheese and yogurt and after the 6th week will introduce meat, fish and cooked vegetables in small amounts. Over time you should be able to eat everything in small amounts. Side effects like nausea, vomiting, heartburn or abdominal pain are not common in the practice unless you are not following in the practice. This operation requires lifetime commitment to following in our practice and communication with me. You will much less weight and experience side effects if you don?t communicate or not following in the practice. Complications are rare and in our practice is about 1/10 of the national average. However, you can develop bleeding that may require transfusion (hasn?t happened for year in the practice), you may from complications (we did not have any deaths in the practice) and infections. Infections are usually a result of breakdown in communication or not understanding or following directions correctly. They are difficult to treat, they can happen during the first 6 weeks, they may require to be in the hospital for weeks or even months, not being able to eat by mouth and you may have drains and surgeries to try and correct the issue. Other risks and complications include possible conversion to an open procedure, leaks, small bowel obstruction, blood clots, cardiac, or pulmonary complications, as long haul truck driver complications such as ulcers, insufficient weight loss and vitamin deficiencies. 2. Nutritional counseling. Start with one premade PREMIER protein (buy at [employer] or [employer]) shake at 6am-8am, one protein bar (Fit Crunch protein bar, buy at [employer], or [employer]) at 9am-11am, another premade PREMIER protein shake (mix 4oz of Premier mixed with 4oz low fat unsweetened almond milk each) at 12pm-2pm, another Fit Crunch protein bar at 3pm-5pm,?dinner at 6pm (14 forks of protein and 14 forks of salad/vegetables), and another HALF [employer] Crunch protein bar at 8pm-9pm. So you do 2 protein shakes, 2.5 protein bars and one meal per day. Meal to include lean meat (beef, fish, pork, turkey, chicken), or mohawk yogurt, or egg whites, or beans with a salad with olive oil and fruits (berries, pears, apples, kiwi). Avoid salt, breads, potatoes, rice, pasta, desserts. 3. Each shake would be drunk slowly, like coffee in a period of 2 hours. 4. Cut each bar in 4 pieces and eat each piece in 30min ?to make each bar last 2 hours. 5. I emphasized the importance of measuring accurately the food portion and measure it when serving the food in plate 6. The meal portions include 14 full-size forks of meat and 14 full-size forks of salad. You always eat the meat portion but you can replace up to 7 forks for salad/vegetables with rice, potatoes or pasta, or a fruit ?if you like. The less you do it the better weight loss will be. 7. One full-size fork is what it can be scooped on the fork without falling aside and not what can be bit with the fork. Use regular forks like those you find in a typical restaurant. 8.? Please buy the body composition scale we discussed and send me weight measurements as soon as possible and then once a week. Always include your diet and exercise plan. 9. Start stationary bike at a resistance level of 0.0 Increase level by 1.0 every 3 min to a max level of 6.0. Stay at this level for 3 min and then return to level 0.0 and repeat same steps until 300 calories are burned. Goal is to burn 2000 calories per week on exercise 10. Goal is to lose at least 1.5-2lbs per week 11. Goal to lose 10% of your weight before surgery, which is about 38lbs. Ultimate weight goal: 400lbs before surgery 12. Please follow the diet plan exactly without any change. If you don't like something about the plan or you feel hungry you need to communicate with me so I can help you revise the plan. You should not change the plan yourself 13. To be scheduled for EGD to assess the stomach's anatomy. The possibility of biopsies was discussed. Patient needs to avoid use of NSAIDs and aspirin for 1 week prior to EGD. You must be on liquids only the day before your endoscopy. Risks of perforation and bleeding was discussed with the patient. This will be an outpatient procedure with IV sedation. 14. Please do the following test: Check your heart rate at rest (at your sleep). Walk for exactly one mile distance as fast as you can and check your heart rate again as soon as you complete the mile walk. Text me the heart rate at rest and after the walk and the time in minutes and seconds that took you to complete the mile walk. You can use your smartphone's stopwatch to track accurately the time it took to walk the mile.
[2025-04-30 13:16] VITALS: BMI 62.9
== END 2025-04-30 13:41 | disposition home or self-care (01) ==
LOC: HO.HBS 09:25
PROVIDERS: PCP Internal Medicine; Visit Provider Surgery
DX: E66.01 Morbid (severe) obesity due to excess calories (principal); Z68.44 Body mass index [BMI] 60.0-69.9, adult
CPT/HCPCS: 99203

== ENCOUNTER 2025-05-26 19:00 | Emergency (ER) | payer BC, SELFPAY ==
--- OUTSIDE RECORDS SUMMARY | 2023-07-22 18:40 | XMS_ITS | Encounter Summary ---
Author Organization [facility] Address [address] [place] [address] Phone Care Team Providers Care Multimedia Artist Name Role Phone Elmer Sky MD Primary Care Provider Encounter Details Date Type Department Care Team (Late st Contact Info) Description 07/22/2023 5:40 PM EST Hospital Encounter [facility] [address] [place] [phone] Zahra Mendoza, PILOT BOAT CAPTAIN [address] [place] [address] [email or web address] Social History Tobacco Use Types [...] 11:26 AM EDT Asha Aguirre RN * [place] Suicide Severity Rating Scale (Screener/Recent Self-Report) Question [...] disease. No lobar consolidations. us Zahra Mendoza PILOT BOAT CAPTAIN IMG XR CHEST Final Resul t documented in this encounter Visit Diagnoses Not on filedocumented in this encounter Additional Health Concerns Infection Onset Date Last Indicated Resolved Time CoV-Risk 07/22/2023 07/22/2023 08/02/2023 1:22 AM EST documented as of this encounter Care Teams Multimedia Artist Relationship Specialty Start Date End Date Elmer Sky MD PCP - General Internal Medicine 04/29/23 12/17/24 documented as of this encounter Additional Source Comments The information contained in this document represents components of the legal health record. It is not the complete legal health record.[facility]
--- OUTSIDE RECORDS SUMMARY | 2025-05-26 09:00 | XMS_ITS | Encounter Summary ---
Author Organization [facility] Address [address] [place] [address] Care Team Providers Care Seat Coverer Name Role Phone Elmer Sky MD Primary Care Provider [phone] Reason for Visit * Reason Comments Post-op LLE hematoma * Consultation (Routine) - Authorized Specialty Diagnoses / Procedures Referred By Contac t Referred To Contact General Surgery Diagnoses Hematoma of left lower extremity, subsequent encounter Hematoma of left thigh, subsequent encounter Sheba Herrera PA [address] [place] [phone] Phone: tel: fax: Ancelmo Gonzalez DO [address] [address] Phone: tel: fax: Referral ID Status Reason Start Date Expiration Date Visits Requested Visits Authorized [id number] Authorized Specialty Services Required 04/06/2025 04/06/2026 12 12 Encounter Details Date Type Department Care Team (Late st Contact Info) Description 05/26/2025 9:00 AM EDT Office Visit General Surgery - [place] [address] [phone] Ancelmo Gonzalez DO [address] [address] S/P evacuation of hematoma (Primary Dx) Social History Tobacco Use Types [...] for your loved ones. For example, child development consultant or elderly care for an older adult? [...] What is your living situation? 0 02/22/2025 Interpersonal Safety Answer Date Record ed Physical Abuse 05/17/2025 Verbal Abuse 05/17/2025 Sex and Gender Information Value Date Recorded Sex Assigned at Not on file Legal Sex Male 11:47 AM EST Gender Identity Not on file Sexual Orientation Not on file documented as of this encounter Last Filed Vital Signs Vital Sign Reading Time Taken Comments Blood Pressure 138/83 05/26/2025 8:51 AM EDT Pulse 79 05/26/2025 8:51 AM EDT Temperature 36.4 C (97.5 F) 05/26/2025 8:51 AM EDT Respiratory Rate - - Oxygen Saturation - - Inhaled Oxygen Concentration - - Weight 200 kg (440 lb 8 oz) 05/26/2025 8:51 AM E DT Height 177.8 cm (5' 10 ) 05/26/2025 8:51 AM EDT Body Mass Index 63.21 05/26/2025 8:51 AM EDT documented in this encounter Progress Notes * Ancelmo Gonzalez, DO - 05/26/2025 9:00 AM EDT Reason for visit: Follow-up - s/p evacuation and drainage of LLE hematoma and drain placement HPI: History of Present Illness The patient is a 47-year-old male who presents for a postoperative follow-up after the evacuation of a hematoma in the left lower extremity on 05/17/2024. A drain was placed during the procedure. He reports persistent swelling in the affected area, which he finds difficult to assess. The drainage fluid is serosanguineous, with no presence of pus. He has completed his course of antibiotics. Initially, he was draining approximately 20 mL per day, but this has decreased to around 10 mL in the past 24 hours. He also mentions a bone spur on the same side, which causes shooting pain and may be a ffecting his gait. He recalls an incident at work where he experienced sudden shooting pain in his heel, even though he had been feeling fine prior to this. He has a history of cellulitis. PAST SURGICAL HISTORY: Evacuation of hematoma in the left lower extremity on 05/17/2024. ROS GENERAL: No significant weight loss or fever RESPIRATORY: No cough or shortness of breath CARDIOVASCULAR: No chest pain GI: No abdominal discomfort, see HPI SKIN: No rash, jaundice ACTIVE MEDICATIONS: Medication list was reviewed/updated with the patient. Outpatient Medications Marked as Taking for the 05/26/25 encounter (Office Visit) with Ancelmo Gonzalez, DO Medication Sig Dispense Refill acetaminophen (TYLENOL) 500 mg capsule 1 CAPSULE EVERY 4 HOURS NEEDED acetaminophen (TYLENOL) 500 mg tablet Take 2 tablets (1,000 mg total) by mouth every 6 (six) hours if needed for mild pain for up to 10 days. 30 tablet 0 amphetamine-dextroamphetamine (ADDERALL) 30 mg tablet Take 1 tablet (30 mg total) by mouth 2 times daily. cetirizine (ZyrTEC) 10 mg tablet Take 1 tablet (10 mg total) by mouth 1 (one) time each day if needed for allergies. cholecalciferol (Vitamin D3) 50 mcg (2,000 unit) capsule Take 1 capsule (2,000 Units total) by mouth 1 (one) time each day. 90 capsule 1 gabapentin (NEURONTIN) 300 mg capsule Take 1 capsule (300 mg total) by mouth at bedtime as needed (Insomnia). ibuprofen (ADVIL,MOTRIN) 600 mg tablet Take 1 tablet (600 mg total) by mouth every 8 (eight) hours if needed for mild pain. 60 tablet 0 oxyCODONE (OXY-IR) 5 mg immediate release capsule Take 1 capsule (5 mg total) by mouth every 6 (six) hours if needed for severe pain. Max Daily Amount: 20 mg 8 capsule 0 ALLERGIES: @ALL@ PHYSICAL EXAM: Visit Vitals BP 138/83 (BP Location: Right arm, Patient Position: Sitting, BP Cuff Size: Large adult) Pulse 79 Temp 36.4 ??C (97.5 ??F) (Temporal) Ht 1.778 m (70 ) Wt 200 kg (440 lb 8 oz) BMI 63.21 kg/m?? Smoking Status Never BSA 2.92 m?? APPEARANCE: Alert and in no acute distress EYES: conjunctiva and sclera normal. HEART: RRR LUNG: non-labored respirations, patient is comfortable on room air without adventitious sounds Physical Exam Skin: The skin is essentially closed with a small area occasionally opening due to fluid drainage. No signs of infection. Extremities: Mild swelling in the left lower extremity. Drain removed and stapled sremoved at time of eval NEURO: Awake, alert and oriented, moves all extremities SKIN: Skin color, texture normal. LABS: Lab Results Component Value Date WBC 7.5 04/07/2025 HGB 15.0 04/07/2025 HCT 46.2 04/07/2025 MCV 86.4 04/07/2025 Lab Results Component Value Date NA 135 04/07/2025 K 4.6 04/07/2025 CO2 28 04/07/2025 CL 101 04/07/2025 BUN 13 04/07/2025 ALKPHOS 104 04/07/2025 IMAGING: nonw ................................................................................ ............................................................. ASSESSMENT 1. S/P evacuation of hematoma PLAN: 1. Assessment & Plan 1. Postoperative status following evacuation of hematoma from the left lower extremity. The skin is essentially closed with a small area that occasionally opens due to underlying fluid drainage. The hematoma was located on top of the fascia where the nerves run. The wound appears to be healing well. The drain was removed today. Steri-Strips were applied to the wound. He was advised tokeep the bandage on for 48 to 72 hours and then shower, allowing water to run over it. He can startscrubbing the area in the next couple of days, even with the Steri-Strips on, and remove them as they start peeling off. He was instructed to elevate the leg slightly while in bed over the next few days. If the bandage falls off, he can cover it with a Band-Aid. He was informed that the wound will heal from the inside out and eventually become a scar. The swelling should subside with the removal of the drain. He was advised to contact the office if he experiences redness, heat, swelling, pain, inability to move his toes, or bend his leg. Risks, benefits, and alternatives of treatment were discussed, including the possibility of deep vein thrombosis and infection. He was informed that if he e xperiences symptoms such as redness, heat, swelling, pain, or inability to move his toes or bend his leg, he should seek emergency help and contact the office for further guidance. Follow-up A follow-up appointment is scheduled for 2 to 3 months from now. PROCEDURE Procedure: Drain removal from left lower extremity - Procedural Discussion: Discussed the removal of the drain placed during the evacuation of hematoma on 05/17/2024. The patient was informed about the expected drainage and the purpose of the drain to prevent fluid accumulation. - Technique: The dressing was removed, and the sutures were taken out. The drain was gently pulled out while the patient was instructed to breathe deeply. Steri- Strips were applied to the wound. - Hemostasis: Pressure applied to the site to ensure hemostasis. - Closure: Steri-Strips applied to close the wound. - Dressing: An occlusive bandage was applied to the site for 48-72 hours. - Post-Procedural Discussion: The patient was advised that the wound should heal well and to keep an eye on any signs of infection. Instructions were given on how to care for the wound, including allowing water to run over it during showers and removing Steri-Strips as they peel off. It was a pleasure seeing @TITLE@ Kiet Spain at the Surgery [facility] today. The patient hasbeen instructed to call with any additional questions or concerns. @ESIG@ cc: documented in this encounter Plan of Treatment Upcoming Encounters Date Type Department Care Team (Late st Contact Info) Description 06/21/2025 3:00 PM EDT Ancillary Procedure [facility] [address] [facility] [address] [place] [address] 08/03/2025 3:15 PM EST Office Visit General Surgery - [place] 175 [facility] [address] [place] [address] Ancelmo Gonzalez DO 175 [facility] [address] [place] [address] 09/28/2025 4:00 PM EST Office Visit Adult Medicine [address] [phone] Elmer Sky MD 4 [place], [place] documented as of this encounter Visit Diagnoses Diagnosis S/P evacuation of hematoma- Primary documented in this encounter Additional Health Concerns Assessment Noted Time PHQ-9 Depression Total Score: 0 02/23/20 25 11:12 AM EDT documented as of this encounter Care Teams Seat Coverer Relationship Specialty Start Date End Date Elmer Sky MD [address] [place] [address] PCP - General 01/14/23 documented as of this encounter
--- NOTE | 2025-05-26 19:02 | ED.GENADULT ---
HPI - General Adult General Chief complaint: Wound/Laceration Stated complaint: open incision Time Seen by Provider: 05/26/25 19:10 History of Present Illness ED Provider: Jacques SIGALA narrative: The patient is a 39-year-old male who sustained an injury to his left leg about 10 or 11 days ago. He had injured himself by stepping through a broken wooden plank of a floor. His leg went through the whole and he sustained a very bad bruise to the left calf. The next day he went to the emergency room at [facility] where he ended up having surgery to drain a large hematoma. This was done by a Dr. Ancelmo Gonzalez. In addition to having a surgical incision closed with shar he also had a drain placed in his wound. Earlier today he would follow up with his surgeon and had his shar removed and the drain removed. He was given a dressing. This evening there was a lot of blood at the dressing and it was apparent that the wound had dehisced. He came to the emergency room here for evaluation. He has no other complaints aside from the opening of the wound. There has been no fever, sweats, chills. No new pains. No additional symptoms of any kind. Related Data Home Medications ?Medication ?Instructions ?Recorded ?Confirmed acetaminophen 325 mg tablet 325 mg PO QID PRN 09/29/20 04/30/25 (Tylenol) multivitamin 1 tab PO DAILY 09/29/20 04/30/25 loratadine 10 mg tablet (Claritin) 10 mg PO DAILY 01/17/21 04/30/25 dextroamphetamine-amphetamine 30 1 tab PO BID 04/05/25 04/30/25 mg tablet Allergies Allergy/AdvReac Type Severity Reaction Status Date / Time Seasonal Allergies Allergy Severe Sneezing Verified 05/26/25 19:04 Review of Systems Review of Systems: Yes all other systems are reviewed and are negative [facility] Past Medical History Medical History Sleep apnea with use of continuous positive airway pressure (CPAP) GERD (gastroesophageal reflux disease) ADHD Morbid obesity due to excess calories Surgical History History of eye surgery History of surgery on extremity History of hip surgery History of tonsillectomy and adenoidectomy History of placement of ear tubes Family History Family History (Updated 04/05/25 @ 15:31 by Mamie White [facility]) Mother Diabetes Father Acute arthritis Brother No problems noted. Brother No problems noted. Maternal Grandfather Colon cancer Social History Social History (Updated 04/05/25 @ 15:31 by Mamie White [facility]) Alcohol intake: current Alcohol intake frequency: a few times a week Alcohol type: beer Patient Tobacco Use Status: Never used Tobacco Advance Directives: No Advance Directives Information Provided: No Physical Exam ED Vital Signs: Vital Signs - 24 hr 05/26/25 19:04 05/26/25 21:10 Temperature 97.7 F 97.8 F Pulse Rate 102 H 93 Respiratory Rate 20 18 Blood Pressure 154/106 H 143/73 H Pulse Oximetry 97 98 Oxygen Delivery Method Room Air Room Air BMI result Body Mass Index 69.6 Const Other: The patient is a 39-year-old male who is awake, alert, pleasant, cooperative. He does not appear in acute distress. HENMT Other: The face is symmetrical. Mucous membranes moist. Eyes Other: Pupils are round equal, conjunctivae are clear, extraocular movements intact Neck Neck: Yes normal visual inspection and Yes full ROM Resp Effort & Inspection: normal respiratory effort Auscultation: clear to auscultation bilaterally Cardio Rate: regular rate Rhythm: regular rhythm Heart sounds: S1 normal heart sound present and S2 normal heart sound present Skin Other: the patient has a surgical wound on the medial aspect of the left proximal lower leg. The entire length of the wound is approximately 5.5 cm in length. It is vertically oriented wound. About 4.5 cm of the wound have dehisced. The lowest 1 cm remains closed. There is also a small hole in the skin a couple of cm below the wound which was the entry site for a drain that has been removed. There is no associated erythema. There is no significant bleeding. There is no purulence. There is no marked tenderness to the region of the wound. Neuro Other: The patient is awake and alert with normal mental status. The left foot is neurovascularly intact. Extrem Other: Patient has a vertically-oriented wound on the left lower leg, the proximal portion of the medial aspect of the leg. The wound is about 5.5 cm in length. The top 4.5 cm of the wound have dehisced. There is no significant associated soft tissue swelling or erythema or any other a pair problem with the leg. Course Course Course Narrative: This is a rapid medical exam performed by Sammie Jalloh NP: Additional HPI, ROS, PE not included below will be deferred to primary provider. Patient is a 39y/o M presenting with complaint of bleeding from left lower leg. Recently had hematoma evacuation with drain performed at [facility]. Drain and shar removed today. Patient states that when he sat down the wound opened up and began to bleed. Medications Administered Discontinued Medications Generic Name Dose Route Start Last Admin Trade Name Kay PRN Reason Stop Dose Admin Bacitracin 1 appl 05/26/25 20:40 05/26/25 21:01 Bacitracin Oint 0.9 Gm Packet TOPICAL 05/26/25 20:41 1 appl ONCE ONE Administration Protocol Medical Decision Making Medical Decision Making MDM Narrative: The patient is a 39-year-old male who is approximately 10 days postoperative from a surgery on his proximal left calf for evacuation of a hematoma. Earlier today he had shar removed from the surgical incision. He also had a drain removed. This evening the wound opened up and he came to the emergency room because of this. The wound show signs of dehiscence but no other concerning findings. No sign of infection or other complication. The patient was concerned as to whether the wound could be reclosed. Given the timing of this wound I do not think there is an appropriate indication for re-closure. I attempted to contact the patient's surgeon, Dr. Ancelmo Gonzalez. I spoke with his answering service to attempt to get a response. However after waiting for some time I never received a call back. I think at this point the wound will have to be allowed to close by secondary intention. I discussed wound care instructions with the patient. The wound will be dressed with Xeroform and a gauze bandage. He should contact his surgeon in the morning. Discharge Plan Discharge Clinical Impression: Dehiscence of operative wound Patient Disposition: Home, Self-Care Instructions: Wound Dehiscence (ED) Additional Instructions: Your surgical wound has opened up. The technical name for this phenomenon is ?dehiscence. Unfortunately when a wound like this opens up in this manner it is not considered safe to close it again. The risk of infection becomes too high. Therefore this wound will have to heal on its own. This kind of wound healing is called ?healing by secondary intention. Wounds often heal very well by secondary intention but they do take a little more care. Please apply a Xeroform dressing to the wound and then cover with a lot of gauze. Change the dressings daily. Try to stay off the wound as much as you can over the next couple of days. Please call your surgeon tomorrow morning to check in and discuss this plan and take any additional advice your surgeon might have. If you are significantly worse return to the emergency room or call your surgeon for additional advice. Prescriptions: No Action acetaminophen [Tylenol] 325 mg tablet 325 mg PO QID PRN multivitamin Tablet 1 tab PO DAILY loratadine [Claritin] 10 mg tablet 10 mg PO DAILY dextroamphetamine-amphetamine 30 mg tablet 1 tab PO BID Referrals: Elmer Sky MD [Primary Care Provider, Internal Medicine] Ancelmo Gonzalez DO [Physician, General Surgery] Interventions: ED Discharge Assessment Last Done: 05/26/25 21:10 Discharge Date/Time: 05/26/25 21:12 Print Language: South Sudanese
[2025-05-26 19:04] VITALS: BP 154/106; PULSE 102; RESP 20; TEMP 36.5; O2SAT 97; BMI 69.6
--- OUTSIDE RECORDS SUMMARY | 2025-05-26 20:30 | XMS_ITS | Encounter Summary ---
Author Organization [facility] Address [address] [place] [address] Care Team Providers Care Games Manager Name Role Phone Caty Gray MD Primary Care Provider Elmer Willis Primary Care Provider [phone] Encounter Details Date Type Department Care Team Description 02/15/2021 Airbrush Artist Photography Report Medical Records [address] [place] [address] Abstract, Provider Social History Tobacco Use Types [...] on filedocumented in this encounter Care Teams Games Manager Relationship Specialty Start Date End Date Caty Gray MD PCP - General 10/31/1996 01/13/23 Elmer Sky [address] [place] [id number] PCP - General Internal Medicine 01/14/23 documented as of this encounter
--- OUTSIDE RECORDS SUMMARY | 2025-05-26 20:30 | XMS_ITS | Encounter Summary ---
Author Organization [facility] Address [address] [place] [address] Care Team Providers Care Accounts Receivable Processor Name Role Phone Caty Gray MD Primary Care Provider Elmer Willis Primary Care Provider [phone] Encounter Details Date Type Department Care Team Description 10/13/2020 Crop Farmers Report Medical Records [address] [place] [address] Soco Gonzalez MD Social History Tobacco Use [...] on filedocumented in this encounter Care Teams Accounts Receivable Processor Relationship Specialty Start Date End Date Caty Gray MD PCP - General 10/31/1996 01/13/23 Elmer Sky [address] [place] [address] PCP - General Internal Medicine 01/14/23 documented as of this encounter
--- OUTSIDE RECORDS SUMMARY | 2025-05-26 20:30 | XMS_ITS | Encounter Summary ---
Author Organization [facility] Address [address] [place] [address] Care Team Providers Care Nurse Reviewer Name Role Phone Caty Gray MD Primary Care Provider Elmer Willis Primary Care Provider [phone] Encounter Details Date Type Department Care Team Description 06/27/2016 Release of Information Medical Records [address] [place] [address] Abstract, Provider Social History Tobacco Use Types [...] on filedocumented in this encounter Care Teams Nurse Reviewer Relationship Specialty Start Date End Date Caty Gray MD PCP - General 10/31/1996 01/13/23 Elmer Sky [address] [place] [id number] PCP - General Internal Medicine 01/14/23 documented as of this encounter
--- OUTSIDE RECORDS SUMMARY | 2025-05-26 20:30 | XMS_ITS | Encounter Summary ---
Author Organization [facility] Address [address] [place] [address] Care Team Providers Care Hosiery Looper Name Role Phone Elmer Sky Primary Care Provider [phone] Reason for Visit * Reason Comments E-prescribe Rx Request Encounter Details Date Type Department Care Team Description 09/16/2023 Refill [facility] [address] [place] [address] [place] [phone] Juan Long DPM E-prescribe Rx Request Social History Tobacco Use Types Packs/Day Years [...] on filedocumented in this encounter Care Teams Hosiery Looper Relationship Specialty Start Date End Date Elmer Sky [address] [place] [address] PCP - General Internal Medicine 01/14/23 documented as of this encounter
--- OUTSIDE RECORDS SUMMARY | 2025-05-26 20:30 | XMS_ITS | Encounter Summary ---
Author Organization [facility] Address [address] [place] [address] Care Team Providers Care Vice President Of Procurement Name Role Phone Caty Gray MD Primary Care Provider Elmer Willis Primary Care Provider [phone] Reason for Visit * Reason Comments Res Habilitation Assistant Feedback Referral-Dr. Saldana Encounter Details Date Type Department Care Team Description 06/12/2004 Telephone Pediatrics - [address] [address] Lenard Mcarthur MD Res Habilitation Assistant Feedback (Referral-Dr. Saldana) Social History Tobacco Use Types Packs/Day Years Used Date Smoking Tobacco: Never Assessed Sex Assigned at Date Recorded Not on file documented as of this encounter Miscellaneous Notes * Telephone Encounter - 06/12/2004 3:24 PM EDTCALL RECEIVED. Contact: Ref to Dr. Saldana done and faxed to office for allergy shots Ref [id number], 30 visits, 06/05/04-06/05/05 Pt has appt 06/07/04 documented in this encounter Plan of Treatment Not on file documented as of this encounter Visit Diagnoses Not on filedocumented in this encounter Care Teams Vice President Of Procurement Relationship Specialty Start Date End Date Caty Gray MD PCP - General 10/31/1996 01/13/23 Elmer Sky [address] [place] [id number] PCP - General Internal Medicine 01/14/23 documented as of this encounter
--- OUTSIDE RECORDS SUMMARY | 2025-05-26 20:30 | XMS_ITS | Patient Health Record ---
Author [facility] Address [address] [facility] [place] [address] Care Team Providers Care Oil Separator Name Role Phone Caty Gray Primary Care Provider Nicole Watson Unavailable [phone] Allergies No Known Allergies Reason For Referral [...] X ray : Foot, right 3V 05/21/2022 [id number] TENDON SHEATH/LIGAMENT 1 09/02/2021 Insurance Providers Payer Name Payer Address Payer Phone Subscriber Number Group Number Insured Name Patient Relationship to Insured Coverage Start Date Coverage End Date [facility] [address] [place] [address] [phone] [id number] Miles Spain Self - patient is the insured Medical (General) History Medical History History ICD Code covid-19 Chicken pox Joint implants/screws Surgical History Surgery Date(Month/Year) hip surgery-pinned 12/1997
--- OUTSIDE RECORDS SUMMARY | 2025-05-26 20:30 | XMS_ITS | Encounter Summary ---
Author Organization [facility] Address [address] [place] [address] Care Team Providers Care Machine Feed Operator Name Role Phone Caty Gray MD Primary Care Provider Elmer Willis Primary Care Provider [phone] Reason for Visit * Reason Comments poison clari Encounter Details Date Type Department Care Team Description 01/18/2004 Telephone Medicine/Pediatrics - [address] [phone] Jackson Mcarthur MD poison clari Social History Tobacco Use Types Packs/Day Years Used Date Smoking Tobacco: Never Assessed Sex Assigned at Date Recorded Not on file documented as of this encounter Miscellaneous Notes * Telephone Encounter - 01/18/2004 9:52 AM EDTstomach legs and arms - appt scheduled * Telephone Encounter - 01/18/2004 9:40 AM EDTCALL RECEIVED. Contact: [phone] corin pierce TRIAGE CALLS- NAKUL SYMPTOMS PT IS PRESENTING:poison clari HOW LONG HAS PT HAD THESE SYMPTOMS?: NAME OF PT'S PCP:DR. JACKSON MCARTHUR documented in this encounter Plan of Treatment Not on file documented as of this encounter Visit Diagnoses Not on filedocumented in this encounter Care Teams Machine Feed Operator Relationship Specialty Start Date End Date Caty Gray MD PCP - General 10/31/1996 01/13/23 Elmer Sky [address] [place] [id number] PCP - General Internal Medicine 01/14/23 documented as of this encounter
--- OUTSIDE RECORDS SUMMARY | 2025-05-26 20:30 | XMS_ITS | Encounter Summary ---
Author Organization [facility] Address [address] [place] [address] Care Team Providers Care Circular Gang Saw Operator Name Role Phone Caty Gray MD Primary Care Provider Elmer Willis Primary Care Provider [phone] Encounter Details Date Type Department Care Team Description 03/22/2022 Senior Information Systems Architect Report Medical Records [address] [place] [address] Ann Sky NP Social History Tobacco Use [...] on filedocumented in this encounter Care Teams Circular Gang Saw Operator Relationship Specialty Start Date End Date Caty Gray MD PCP - General 10/31/1996 01/13/23 Elmer Sky [address] [place] [address] PCP - General Internal Medicine 01/14/23 documented as of this encounter
--- OUTSIDE RECORDS SUMMARY | 2025-05-26 20:30 | XMS_ITS | Encounter Summary ---
Author Organization [facility] Address [address] [place] [address] Care Team Providers Care Precision Filer Hand Name Role Phone Elmer Sky MD Primary Care Provider [phone] Reason for Visit * Reason Onset Date Comments Forms/questionnaires 05/26/2025 Encounter Details Date Type Department Care Team ([facility] Contact Info) Description 05/26/2025 Telephone General Surgery - Willis [address] [place] [address] Ancelmo Gonzalez, DO [address] [place] [address] Social History Tobacco Use Types Packs/Day Years [...] for your loved ones. For example, child nurse or elderly care for an older adult? [...] as of this encounter Progress Notes * Emeli Burgess - 05/26/2025 10:18 AM EDT I received a form for fmla documented in this encounter Plan of Treatment Upcoming Encounters Date Type Department Care Team (Late st Contact Info) Description 06/21/2025 3:00 PM EDT Ancillary Procedure [facility] [address] [place] [address] 08/03/2025 3:15 PM EST Office Visit General Surgery - Willis [address] [facility] [address] [place] [address] Ancelmo Gonzalez, DO [address] [facility] [address] [place] [address] 09/28/2025 4:00 PM EST Office Visit Adult Medicine [address] [phone] Elmer Sky MD [address] [place] [address] documented as of this encounter Visit Diagnoses Not on filedocumented in this encounter Additional Health Concerns Assessment Noted Time PHQ-9 Depression Total Score: 0 02/23/20 25 11:12 AM EDT documented as of this encounter Care Teams Precision Filer Hand Relationship Specialty Start Date End Date Elmer Sky MD [address] [place] [address] PCP - General 01/14/23 documented as of this encounter
--- OUTSIDE RECORDS SUMMARY | 2025-05-26 20:30 | XMS_ITS | Encounter Summary ---
Author Organization [facility] Address [address] [place] [address] Care Team Providers Care Web Manager Name Role Phone Caty Gray MD Primary Care Provider Elmer Willis Primary Care Provider [phone] Encounter Details Date Type Department Care Team Description 06/13/2021 Ship Joiner Report Medical Records [address] [place] [address] Eyal Mcknight [address] [place] [address] Social History Tobacco Use Types Packs/Day Years [...] on filedocumented in this encounter Care Teams Web Manager Relationship Specialty Start Date End Date Caty Gray MD PCP - General 10/31/1996 01/13/23 Elmer Sky [address] [place] [address] PCP - General Internal Medicine 01/14/23 documented as of this encounter
--- OUTSIDE RECORDS SUMMARY | 2025-05-26 20:30 | XMS_ITS | Encounter Summary ---
Author Organization [facility] Address [address] [place] [address] Care Team Providers Care Firearms Model Maker Name Role Phone Caty Gray MD Primary Care Provider Elmer Willis Primary Care Provider [phone] Encounter Details Date Type Department Care Team Description 07/06/2016 Behavioral Modification Assistant Report Medical Records [address] [place] [address] Poncho Chaney MD Social History Tobacco Use Types Packs/Day [...] on filedocumented in this encounter Care Teams Firearms Model Maker Relationship Specialty Start Date End Date Caty Gray MD PCP - General 10/31/1996 01/13/23 Elmer Sky [address] [place] [id number] PCP - General Internal Medicine 01/14/23 documented as of this encounter
--- OUTSIDE RECORDS SUMMARY | 2025-05-26 20:30 | XMS_ITS | Encounter Summary ---
Author Organization [facility] Address [address] [place] [address] Care Team Providers Care Curing Machine Operator Name Role Phone Caty Gray MD Primary Care Provider Elmer Willis Primary Care Provider [phone] Encounter Details Date Type Department Care Team Description 09/12/2001 Telephone Pediatrics - [address] [phone] Lenard Mcarthur MD Social History Tobacco Use Types Packs/Day Years Used Date Smoking Tobacco: Never Assessed Sex Assigned at Date Recorded Not on file documented as of this encounter Miscellaneous Notes * Telephone Encounter - 09/12/2001 10:29 AM ESTScript called in for Bactrim DS, one tab po bid. # 28 * Telephone Encounter - 09/12/2001 9:18 AM ESTNote from school requiring RX. Pt is asymptomatic and has no allergies. Call in to [phone] [facility] * Telephone Encounter - 09/12/2001 8:43 AM ESTCALL RECEIVED. Contact: [phone] TRIAGE CALLS- NAKUL SYMPTOMS PT IS PRESENTING:patient exposed to whooping couch at [facility] and brought home a lette r from nurse stating he needed to be put on an atibiotic. Nurse [facility]/62 Mom would lik e a call back at [phone] HOW LONG HAS PT HAD THESE SYMPTOMS?: NAME OF PT'S PCPLyubov documented in this encounter Plan of Treatment Not on file documented as of this encounter Visit Diagnoses Not on filedocumented in this encounter Care Teams Curing Machine Operator Relationship Specialty Start Date End Date Caty Gray MD PCP - General 10/31/1996 01/13/23 Elmer Sky [address] [place] [address] PCP - General Internal Medicine 01/14/23 documented as of this encounter
--- OUTSIDE RECORDS SUMMARY | 2025-05-26 20:30 | XMS_ITS | Encounter Summary ---
Author Organization [facility] Address [address] [place] [address] Care Team Providers Care Plumber Assistant Name Role Phone Caty Gray MD Primary Care Provider Elmer Willis Primary Care Provider [phone] Encounter Details Date Type Department Care Team Description 09/22/2014 Telephone Medicine/Pediatrics - [address] [phone] Trino Singh PA-C Social History Tobacco Use Types Packs/Day Years Used Date Smoking Tobacco: Never Smokeless Tobacco: Never Alcohol Use Standard Drinks/Week Comments Yes 0 (1 standard drink = 0.6 oz pur e alcohol) occasional - once a week Sex Assigned at Date Recorded Not on file documented as of this encounter Miscellaneous Notes * Telephone Encounter - Trino Singh PA-C - 09/22/2014 8:26 AM EST Spoke [...] on filedocumented in this encounter Care Teams Plumber Assistant Relationship Specialty Start Date End Date Caty Gray MD PCP - General 10/31/1996 01/13/23 Elmer Sky [address] [place] [id number] PCP - General Internal Medicine 01/14/23 documented as of this encounter
--- OUTSIDE RECORDS SUMMARY | 2025-05-26 20:30 | XMS_ITS | Encounter Summary ---
Author Organization [facility] Address [address] [place] [address] Care Team Providers Care Electronics Assembler Name Role Phone Caty Gray MD Primary Care Provider Elmer Willis Primary Care Provider [phone] Encounter Details Date Type Department Care Team Description 12/28/2014 Customer Service Analyst Report Medical Records [address] [place] [address] Indira Becker [address] [place] [address] Social History Tobacco Use Types Packs/Day Years [...] on filedocumented in this encounter Care Teams Electronics Assembler Relationship Specialty Start Date End Date Caty Gray MD PCP - General 10/31/1996 01/13/23 Elmer Sky [address] [place] [address] PCP - General Internal Medicine 01/14/23 documented as of this encounter
--- OUTSIDE RECORDS SUMMARY | 2025-05-26 20:30 | XMS_ITS | Encounter Summary ---
Author Organization [facility] Address [address] [place] [address] Care Team Providers Care Academic Manager Name Role Phone Caty Gray MD Primary Care Provider Elmer Willis Primary Care Provider Reason for Referral * Radiology Services - Authorized/Booked Specialty Diagnoses / Procedures Referred By Belen robert Referred To Contact Radiology Diagnoses Abdominal pain, bilateral lower quadrant Procedures CT ABD & PELVIS W/O CONTRAST Trino Singh PA-C [address] [place] [address] [address] [address] Referral ID Status Reason Start Date Expiration Date V isits Requested Visits Authorized [id number] Authorized/B ooked 09/22/2014 11/20/2014 1 1 Encounter Details Date Type Department Care Team Description 09/22/2014 Orders Only Medicine/Pediatrics - [address] [phone] Trino Singh PA-C Abdominal pain, bilateral lower [...] site documented in this encounter Care Teams Academic Manager Relationship Specialty Start Date End Date Caty Gray MD PCP - General 10/31/1996 01/13/23 Elmer Sky [address] [place] [id number] PCP - General Internal Medicine 01/14/23 documented as of this encounter
--- OUTSIDE RECORDS SUMMARY | 2025-05-26 20:30 | XMS_ITS | Encounter Summary ---
Author Organization [facility] Address [address] [place] [address] Care Team Providers Care Research Staff Member Name Role Phone Caty Gray MD Primary Care Provider Elmer Willis Primary Care Provider [phone] Encounter Details Date Type Department Care Team Description 11/22/2020 Network Systems Analyst Report Medical Records [address] [place], [place] [address] [place] [address] Social History Tobacco Use Types Packs/Day Years [...] on filedocumented in this encounter Care Teams Research Staff Member Relationship Specialty Start Date End Date Caty Gray MD PCP - General 10/31/1996 01/13/23 Elmer Sky [address] [place], [place] [id number] PCP - General Internal Medicine 01/14/23 documented as of this encounter
--- OUTSIDE RECORDS SUMMARY | 2025-05-26 20:30 | XMS_ITS | Encounter Summary ---
Author Organization [facility] Address [address] [place] [address] Care Team Providers Care Family Services Worker Name Role Phone Caty Gray MD Primary Care Provider Elmer Willis Primary Care Provider [phone] Encounter Details Date Type Department Care Team Description 03/21/2021 Satellite Instruction Facilitator Report Medical Records [address] [place] [address] Abstract, Provider Social History Tobacco Use Types [...] on filedocumented in this encounter Care Teams Family Services Worker Relationship Specialty Start Date End Date Caty Gray MD PCP - General 10/31/1996 01/13/23 Elmer Sky [address] [place] [id number] PCP - General Internal Medicine 01/14/23 documented as of this encounter
--- OUTSIDE RECORDS SUMMARY | 2025-05-26 20:30 | XMS_ITS ---
Author Name [facility] Organization Unknown Care Team Organization Name Specialty Phone Email Start Date End Da te [facility] Elmer Sky Primary Care 02/08/202304/02 [facility] Termed, PROVIDER Primary Care 07/10/202204/02
--- OUTSIDE RECORDS SUMMARY | 2025-05-26 20:30 | XMS_ITS | Encounter Summary ---
Author Organization [facility] Address [address] [place] [address] Care Team Providers Care Wrinkle Chaser Name Role Phone Caty Gray MD Primary Care Provider Elmer Willis Primary Care Provider [phone] Encounter Details Date Type Department Care Team Description 12/06/2020 Pipe Smoking Machine Operator Report Medical Records [address] [place] [address] Soco Gonzalez MD Social History Tobacco Use [...] on filedocumented in this encounter Care Teams Wrinkle Chaser Relationship Specialty Start Date End Date Caty Gray MD PCP - General 10/31/1996 01/13/23 Elmer Sky [address] [place] [address] PCP - General Internal Medicine 01/14/23 documented as of this encounter
--- OUTSIDE RECORDS SUMMARY | 2025-05-26 20:31 | XMS_ITS | Clinical Summary ---
Author Organization [facility] [address] [place] [address] Address [address] [place], [place] Phone Care Team Providers Care Vegetable Grader Name Role Phone Elmer Sky MD Primary [...] each day. 90 capsule 1 5 Active cetirizine (ZyrTEC) 10 mg tablet Take 1 tablet (10 mg total) by mouth 1 (one) time each day if needed for allergies. Active acetaminophen (TYLENOL) 500 mg tablet Take 2 tablets (1,000 mg total) by mouth every 6 (six) hours if needed for mild pain for up to 10 days. 30 tablet 5 05/27/20 25 Active ibuprofen (ADVIL,MOTRIN) 600 mg tablet Take 1 tablet (600 mg total) by mouth every 8 (eight) hours if needed for mild pain. 60 tablet 5 Active oxyCODONE (OXY-IR) 5 mg immediate release capsuleIndicat ions:Hematoma of left lower extremity, subsequent encounter Take 1 capsule (5 mg total) by mouth every 6 (six) hours if needed for severe pain. Max Daily Amount: 20 mg 8 capsule 5 Active oxyCODONE (ROXICODONE) 5 mg immediate release tabletIndicati ons:Hematoma of leg, left, subsequent encounter,Jimy fer of left thigh, subsequent encounter Take 1 tablet (5 mg total) by mouth 2 (two) times a day if needed for severe pain. Max Daily Amount: 10 mg 14 tablet 5 04/27/20 25 Discontinu ed(Therapy completed) oxyCODONE (ROXICODONE) 5 mg immediate release tabletIndicati ons:Hematoma of left thigh, subsequent encounter,Jimy fer of leg, left, subsequent encounter Take 1 tablet (5 mg total) by mouth 2 (two) times a day if needed for severe pain. Max Daily Amount: 10 mg 14 tablet 5 05/17/20 25 Discontinu ed(Stop Taking at Discharge) cephalexin (KEFLEX) 250 mg capsule Take 1 capsule (250 mg total) by mouth 4 (four) times a day for 7 days. 28 each 5 05/24/20 Active Problems Problem Noted Date Diagnosed Date Hematoma of left lower extremity 04/29/2025 Morbid obesity (CMS/HCC V24, CMS/HCC V28) 2023 Insomnia 05/07/2022 Periodic limb movement disorder (PLMD) ADHD (attention deficit hyperactivity disorder) 12/25/2013 PRANAV (obstructive sleep apnea) 12/10/2013 Overview (08/19/2024): Sleep Medicine Services now 01/2021 CPAP 8-16 cm/H2O Encounters Date Type Department Care Team Description 05/26/2025 9:00 AM EDT Office Visit [address] [phone] Ancelmo Gonzalez, DO S/P evacuation of hematoma (Primary Dx) 05/26/[address] [phone] Ancelmo Gonzalez, 05/17/2025 7:34 AM EDT Anesthesia Event [facility] [place] [address] [place] [phone] Linda Ivory MD 05/17/2025 7:30 AM EDT - 05/17/2025 9:00 AM EDT Surgery [facility] OR [address] [place] [phone] Ancelmo Gonzalez, DO EVACUATION HEMATOMA LEFT LOWER EXTREMITY [40648 (CPT )] 05/17/2025 5:49 AM EDT - 05/17/2025 10:09 AM EDT Hospital Encounter [facility] [place] [address] [place] [phone] Ancemlo Gonzalez, Hematoma of left lower extremity, subsequent encounter Discharge Disposition: Home or Self Care 05/06/[address] [phone] Ancelmo Gonzalez, 04/29/2025 3:30 PM EDT Consult [address] [phone] Ancelmo Gonzalez, Hematoma of left lower extremity, subsequent encounter; Hematoma of left thigh, subsequent encounter 04/29/2025 Telephone Adult Medicine [address] [phone] Elmer Sky MD 04/27/2025 3:30 PM EDT Office Visit Adult Medicine [address] [phone] Elmer Sky MD Hematoma of leg, left, subsequent encounter (Primary Dx); Hematoma of left thigh, subsequent encounter; Varicose veins of bilateral lower extremities with other complications; Impacted cerumen of left ear 04/23/2025 2:11 PM EDT - 04/23/2025 11:59 PM EDT Hospital Encounter [facility] [address] [place] [phone] Hematoma of left lower extremity, subsequent encounter; Hematoma of left thigh, subsequent encounter Discharge Disposition: Home or Self Care 04/12/[address] [phone] Sheba Herrera PA 04/12/[address] [phone] Elmer Sky MD 04/06/2025 3:30 PM EDT Office Visit [address] [phone] Sheba Herrera PA Hematoma of left lower extremity, subsequent encounter (Primary Dx); Hematoma of left thigh, subsequent encounter; Screening examination for STD (sexually transmitted disease); Chronic fatigue; Morbid obesity (CMS/HCC V24, CMS/HCC V28); Lower extremity edema; Varicose veins of both lower extremities, unspecified whether complicated; PRANAV (obstructive sleep apnea); Low testosterone; Vitamin D deficiency 04/01/[address] [phone] Elmer Sky MD 03/18/2025 2:28 PM EDT - 03/18/2025 11:59 PM EDT Hospital Encounter [facility] [address] [place] [phone] Hematoma of leg, left, subsequent encounter Discharge Disposition: Home or Self Care 03/16/2025 8:00 AM EDT Office Visit Adult [address] [phone] Elmer Sky MD Hematoma of leg, left, subsequent encounter (Primary Dx); Hematoma of left thigh, subsequent encounter; Varicose veins of both lower extremities, unspecified whether complicated; Acute swimmer's ear of left side 03/15/2025 3:25 PM EDT Lab Draw [address] [phone] Preop examination from Last 3 Months Immunizations Name Administration Dates Next Due DTP 02/20/1990, 6,01/07/1985,1984,1984 [id number] (Pentacel) 2mo to less than 5yo 07/17/1986 [...] X 2 OTHER SURGICAL HISTORY 01/1997 PROCEDURE: 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 Bates thumb tendon repair OTHER SURGICAL HISTORY PROCEDURE: ME PYLOROPLASTY TONSILLECTOMY PROCEDURE: HISTORICAL TONSILLECTOMY Medical History Medical History Date Comments Varicella without mention of complication AGE 4 DX:Varicella without mention of complication Historical Medical DX DX:Difficu lt walk-foot; COMMENT: TOEWALKING Nontraumatic slipped upper f emoral epiphysis DX:Nontraumatic slipped uppe r femoral epiphysis; COMMENT: RT-SURGERY SHRINERS Allergic rhinitis, cause unspecified DX:Allergic rhinitis, cause unspecified; COMMENT: CONJUNCTIVITIS Obesity, unspecified DX:Obesity, unspecified Morbid obesity with BMI of 6 0.0-69.9, [place] [place] [facility] [place] 10/05/2008 DX:Morbid obesity wit h BMI of 60.0-69.9, adult ([facility]) Periodic limb movement disor saranya (PLMD) 02/14/2021 DX:Periodic limb movement di sorder (PLMD) Insomnia 05/07/2022 DX:Insomnia Hematoma of circulatory syst em after non-circulatory system procedure left Neuromuscular disorder ([facility] [place]24, [facility] [place] ADHD (attention deficit hype ractivity disorder) Sleep apnea Family History Medical History Relation Name Comments [...] care for your loved ones. For example, vocational childcare teacher or elderly care for an older [...] F) 05/26/2025 8:51 AM EDT Respiratory Rate 16 05/17/2025 8:48 AM EDT Oxygen Saturation 100% 05/17/2025 8:48 AM EDT Inhaled Oxygen Concentration - - Weight 200 kg (440 lb 8 oz) 05/26/2025 8:51 AM E DT Height 177.8 cm (5' 10 ) 05/26/2025 8:51 AM EDT Body Mass Index 63.21 05/26/2025 8:51 AM EDT Plan of Treatment Upcoming Encounters Date Type Department Care Team (Late st Contact Info) Description 06/21/2025 3:00 PM EDT Ancillary Procedure [facility] [address] [facility] [address] [place] [phone] 08/03/2025 3:15 PM EST Office Visit General Surgery - [facility] [address] [facility] [address] [place] [phone] Ancelmo Gonzalez, [address] [address] 09/28/2025 4:00 PM EST Office Visit Adult Medicine [address] [phone] Elmer Sky MD [address] [place] [address] Health Maintenance Due Date Last Done Comments Cholesterol Screening (Lipid Panel) 12/19/2023 12/18/2018 COVID-19 Vaccine ( season) 2025 Influenza Vaccine (#1) 2025 05/24/2011 Social Influencers of Health Screening 02/22/2026 02/22/2025 DTaP,Tdap,and Td Vaccines (10 - Td or Tdap) 11/02/2030 11/02/2020, 03/23/2009, 04/20/2008, Additional history exists RSV Immunization Adult Patients (1 - 1-dose 75+ series) 2059 HIB Vaccines Completed 07/17/1986, 07/17/1986 IPV Vaccines [...] Procedure Name Priority Date/Time Associated Diagnosis Comments CULTURE ANAEROBIC WITH GRAM STAIN Routine 05/17/2025 8:07 AM EDT Hematoma of left lower extremity, subsequent encounter CULTURE WOUND DEEP Routine 05/17/2025 8: 07 AM EDT Hematoma of left lower extremity, subsequent encounter ME INCISION AND DRAINAGE LEG OR ANKLE DEEP ABSCESS OR HEMATOMA 05/17/2025 7:34 AM EDT Hematoma of left lower extremity, subsequent encounter Special Needs Evacuation of Left Lower Leg Hematoma Doc week block 60 mins US GUIDED SOFT TISSUE FLUID DRAIN LEFT [...] Routine 03/15/2025 3:28 PM EDT Preop examination LIPID PANEL Routine 12/18/2018 from Last 3 Months or Most Recently Relevant to Health Maintenance Results * Culture anaerobic with gram stain (05/17/2025 8:07 AM EDT) Culture, Anaerobic No Growth of Anaerobes. 05/22/2025 7:19 AM EDT [facility] Gram Stain Result Refer to Aerobic culture for gram stain results. 05/22/2025 7:19 AM EDT [facility] Swab Structure of left lower limb / Unknown 05/17/2025 8:07 AM EDT 05/17/2025 8:41 AM EDT us Ancelmo Gonzalez DO LAB MICROBIOLOGY - GENERAL ORD ERABLES Final Result Performing Organization Address [facility]/ZIP Co de Phone Number [facility] [address] [place] [address], [place] [phone] * Culture wound deep (05/17/2025 8:07 AM EDT) Culture, Wound No growth at 3 days 05/20/2025 10:24 AM EDT [facility] Gram Stain Result No polymorphonuclear leukocytes, No epithelial cells, and No organisms noted 05/20/2025 10:24 AM EDT [facility] Swab Structure of left lower limb / Unknown 05/17/2025 8:07 AM EDT 05/17/2025 8:41 AM EDT us Ancelmo Gonzalez DO LAB MICROBIOLOGY - GENERAL ORD ERABLES Final Result [facility] [address] [place] [address], [place] [phone] * US Guided Soft Tissue Fluid Drain [...] Signed Date: 04/23/2025 15:27 ET Workstation ID: [id number] Transcribed By: Self Edit Transcribed Date: 04/23/2025 [...] draped and prepped. Local anesthetic administered. 5 New Zealander one-step catheter advanced to the collection. Under [...] marked, draped and prepped. Local anestheticadministered. 5 [place] Ze[place]ander one-step catheter advanced to the collection. Underultrasound [...] Signed Date: 04/23/2025 15:27 ET Workstation ID: [id number] Transcribed By: Self Edit Transcribed Date: 04/23/2025 15:23 ET us Sheba DALEY IMJass US PROCEDURES Final Result * Hepatitis C antibody (04/07/2025 9:13 AM EDT) Hepatitis C Antibody Negative Negative LAB CHEMISTRY METHOD 04/07/2025 3:46 PM EDT [facility] Blood Venous blood specimen / Unknown Venipuncture / Unknown 04/07/2025 9:13 AM EDT 04/07/2025 9:13 AM EDT us Elmer Sky MD LAB BLOOD ORDERABLES Final Result [facility] [address] [place] [address], [place] [phone] * HIV 1,2 antibody, p24 antigen with reflex to differentiation (04/07/2025 9:13 AM EDT) HIV Combo AB/AG Negative Negative LAB CHEMISTRY METHOD 04/07/2025 3:47 PM EDT [facility] Blood Venous blood specimen / Unknown Venipuncture / Unknown 04/07/2025 9:13 AM EDT 04/07/2025 9:13 AM EDT Narrative [facility] - 04/07/2025 3:47 [...] BLOOD ORDERABLES Final Result Performing Organization Address City/[facility]/ZIP Co de Phone Number [facility] [address] [place] [address], * Treponema pallidum antibody with reflex to RPR and particle agglutination (04/07/2025 9:13 AM EDT) Pathologist [facility] T. Pallidum Antibodies Negative Negative LAB CHEMISTRY METHOD 04/07/2025 4:50 PM EDT [facility] Blood Venous blood specimen / Unknown Venipuncture / Unknown 04/07/2025 9:13 AM EDT 04/07/2025 9:13 AM EDT Sheba DALEY LAB BLOOD ORDERABLES Fin al Result Performing Organization Address City/[facility]/ZIP Co de Phone Number [facility] [address] [place] [address], * Thyroid stimulating hormone with reflex to free t4 and free t3 (04/07/2025 9:13 AM EDT) TSH 0.99 0.40 - 4.00 mcIU/mL LAB CHEMISTRY METHOD 04/07/2025 4:38 PM EDT [facility] Blood Venous blood specimen / Unknown Venipuncture / Unknown 04/07/2025 9:13 AM EDT 04/07/2025 9:13 AM EDT Sheba DALEY LAB BLOOD ORDERABLES Fin al Result [facility] [address] [place] [address], * (ABNORMAL) Testosterone free, bioavailable and total (04/07/2025 9:13 AM EDT) Testosterone 176(L) 229 - 902 ng/dL LAB CHEMISTRY METHOD 04/07/2025 4:38 PM EDT [facility] Testosterone, Free 4.2(L) 4.6 - 22.4 ng/dL LAB CHEMISTRY METHOD 04/07/2025 4:38 PM T [facility] Testosterone, Bioavailable 94(L) 110 - 575 ng/dL LAB CHEMISTRY METHOD 04/07/2025 4:38 PM [facility] Sex Hormone Binding 22.4 See Comment nmol/L LAB CHEMISTRY METHOD 04/07/2025 4:38 PM T [facility] Comment: FEMALES: pre-menopausal [...] g/dL LAB CHEMISTRY METHOD 04/07/2025 4:38 PM [facility] Blood Venous blood specimen / Unknown Venipuncture / Unknown 04/07/2025 9:13 AM EDT 04/07/2025 9:13 AM EDT Sheba DALEY LAB BLOOD ORDERABLES Fin al Result Performing Organization Address [facility]/ZIP Co de Phone Number [facility] [address] [place] [address], [place] [phone] * (ABNORMAL) Hepatitis B screening panel (04/07/2025 9:13 AM EDT) Hepatitis B Surface Ag Negative Negative LAB CHEMISTRY METHOD 04/07/2025 3:47 PM EDT [facility] Hep B Core Total Ab Negative Negative LAB CHEMISTRY METHOD 04/07/2025 3:47 PM EDT [facility] Hepatitis B Surface Ab Positive(A) Negative LAB CHEMISTRY METHOD 04/07/2025 3:47 PM EDT [facility] Blood Venous blood specimen / Unknown Venipuncture / Unknown 04/07/2025 9:13 AM EDT 04/07/2025 9:13 AM EDT Elmer Sky MD LAB BLOOD ORDERABLES Final Result Performing Organization Address [facility]/ZIP Co de Phone Number [facility] [address] [place] [address], [place] [phone] * Chlamydia trachomatis and Neisseria gonorrhoeae molecular study (04/07/2025 9:13 AM EDT) Neisseria gonorrhoeae PCR Negative Negative LAB MOLECULAR DIAGNOSTICS METHOD 04/07/2025 4:16 PM EDT [facility] Chlamydia trachomatis PCR Negative Negative LAB MOLECULAR DIAGNOSTICS METHOD 04/07/2025 4:16 PM EDT [facility] Urine Urine specimen from urethra / Unknown Non-blood Collection / Unknown 04/07/2025 9:13 AM EDT 04/07/2025 9:13 AM EDT Sheba DALEY LAB MICROBIOLOGY - GENER AL ORDERABLES Final Result Performing Organization Address [facility]/ZIP Co de Phone Number [facility] [address] [place] [address], [place] [phone] * (ABNORMAL) Vitamin D 25 hydroxy (04/07/2025 9:13 AM EDT) Pathologist [facility] Vit D, 25-Hydroxy 18.7(L) 30.0 - 80.0 ng/mL LAB CHEMISTRY METHOD 04/07/2025 3:06 PM EDT [facility] Blood Venous blood specimen / Unknown Venipuncture / Unknown 04/07/2025 9:13 AM EDT 04/07/2025 9:13 AM EDT Sheba DALEY LAB BLOOD ORDERABLES Fin al Result Performing Organization Address [facility]/ZIP Co de Phone Number [facility] [address] [place] [address], [place] [phone] * Magnesium (04/07/2025 9:13 AM EDT) [facility] Magnesium 2.1 1.9 - 2.6 mg/dL LAB CHEMISTRY METHOD 04/07/2025 12:40 PM EDT [facility] Blood Venous blood specimen / Unknown Venipuncture / Unknown 04/07/2025 9:13 AM EDT 04/07/2025 9:13 AM EDT Sheba DALEY LAB BLOOD ORDERABLES Fin al Result Performing Organization Address City/[facility]/ZIP Co de Phone Number [facility] [address] [place] [address], [place] [phone] * Vitamin B12 (04/07/2025 9:13 AM EDT) Pathologist [facility] Vitamin B-12 443 250 - 900 pcg/mL LAB CHEMISTRY METHOD 04/07/2025 1:01 PM [facility] Blood Venous blood specimen / Unknown Venipuncture / Unknown 04/07/2025 9:13 AM EDT 04/07/2025 9:13 AM EDT Sheba DALEY LAB BLOOD ORDERABLES Fin al Result [facility] [address] [place] [address], * (ABNORMAL) Comprehensive metabolic panel (04/07/2025 9:13 AM EDT) [facility] Sodium 135 133 - 145 mmol/L LAB CHEMISTRY METHOD 04/07/2025 12:40 PM [facility] Potassium 4.6 3.5 - 5.5 mmol/L LAB CHEMISTRY METHOD 04/07/2025 12:40 PM [facility] Chloride 101 96 - 110 mmol/L LAB CHEMISTRY METHOD 04/07/2025 12:40 PM [facility] CO2 28 21 - 32 mmol/L LAB CHEMISTRY METHOD 04/07/2025 12:40 PM [facility] Anion Gap 6 3 - 11 LAB CHEMISTRY METHOD 04/07/2025 12:40 PM [facility] Glucose 122(H) 70 - 100 mg/dL LAB CHEMISTRY METHOD 04/07/2025 12:40 PM [facility] BUN 13 5 - 25 mg/dL LAB CHEMISTRY METHOD 04/07/2025 12:40 PM [facility] Creatinine 0.94 0.70 - 1.30 mg/dL LAB CHEMISTRY METHOD 04/07/2025 12:40 PM [facility] eGFR 105 >=60 mL/min/1. 73m2 LAB CHEMISTRY METHOD 04/07/2025 12:40 PM EDT [facility] Comment:Calculation based on the Chronic Kidney Disease Epidemiology Collaboration (CKD-EPI) equation refit without adjustment for race. BUN/Creatinine Ratio 13.8 LAB CHEMISTRY METHOD 04/07/2025 12:40 PM EDT [facility] Calcium 9.9 8.5 - 10.5 mg/dL LAB CHEMISTRY METHOD 04/07/2025 12:40 PM [facility] AST (SGOT) 49(H) 10 - 42 unit/L LAB CHEMISTRY METHOD 04/07/2025 12:40 PM [facility] ALT (SGPT) 41 10 - 60 unit/L LAB CHEMISTRY METHOD 04/07/2025 12:40 PM [facility] Alkaline Phosphatase 104 42 - 121 unit/L LAB CHEMISTRY METHOD 04/07/2025 12:40 PM [facility] Total Protein 7.6 6.0 - 8.0 g/dL LAB CHEMISTRY METHOD 04/07/2025 12:40 PM [facility] Albumin 4.1 3.2 - 5.0 g/dL LAB CHEMISTRY METHOD 04/07/2025 12:40 PM [facility] Total Bilirubin 0.9 0.0 - 1.4 mg/dL LAB CHEMISTRY METHOD 04/07/2025 12:40 PM [facility] Blood Venous blood specimen / Unknown Venipuncture / Unknown 04/07/2025 9:13 AM EDT 04/07/2025 9:13 AM EDT us Sheba DALEY LAB BLOOD ORDERABLES Fin al Result [facility] [address] [place] [address], * CBC auto differential (04/07/2025 9:12 AM EDT) Only the most recent of2 resultswithin the time period is included. [facility] Signature WBC 7.5 4.8 - 10.8 K/mcL LAB HEMETOLOGY METHOD 04/07/2025 10:42 AM [facility] RBC 5.40 4.50 - 5.50 M/mcL LAB HEMETOLOGY METHOD 04/07/2025 10:42 AM [facility] Hemoglobin 15.0 13.5 - 17.5 g/dL LAB HEMETOLOGY METHOD 04/07/2025 10:42 AM [facility] Hematocrit 46.2 42.0 - 54.0 % LAB HEMETOLOGY METHOD 04/07/2025 10:42 AM [facility] MCV 86.4 79.0 - 98.0 FL LAB HEMETOLOGY METHOD 04/07/2025 10:42 AM [facility] MCH 28.0 27.0 - 32.0 pcg LAB HEMETOLOGY METHOD 04/07/2025 10:42 AM [facility] MCHC 32.5 32.0 - 37.0 g/dL LAB HEMETOLOGY METHOD 04/07/2025 10:42 AM [facility] RDW 13.0 11.0 - 15.0 % LAB HEMETOLOGY METHOD 04/07/2025 10:42 AM [facility] Platelets 274 130 - 400 K/mcL LAB HEMETOLOGY METHOD 04/07/2025 10:42 AM [facility] MPV 9.1 7.0 - 11.0 FL LAB HEMETOLOGY METHOD 04/07/2025 10:42 AM [facility] NRBC 0.0 <1.0 % LAB HEMETOLOGY METHOD 04/07/2025 10:42 AM [facility] NRBC Absolute 0.00 <0.10 K/mcL LAB HEMETOLOGY METHOD 04/07/2025 10:42 AM [facility] Neutrophils Relative 59.3 % LAB HEMETOLOGY METHOD 04/07/2025 10:42 AM [facility] Lymphocytes Relative 28.6 % LAB HEMETOLOGY METHOD 04/07/2025 10:42 AM [facility] Monocytes Relative 8.0 % LAB HEMETOLOGY METHOD 04/07/2025 10:42 AM [facility] Eosinophils Relative 3.3 % LAB HEMETOLOGY METHOD 04/07/2025 10:42 AM [facility] Basophils Relative 0.5 % LAB HEMETOLOGY METHOD 04/07/2025 10:42 AM [facility] Immature Granulocytes Relative 0.3 % LAB HEMETOLOGY METHOD 04/07/2025 10:42 AM [facility] Neutrophils Absolute 4.43 1.50 - 7.00 K/mcL LAB HEMETOLOGY METHOD 04/07/2025 10:42 AM [facility] Lymphocytes Absolute 2.14 1.00 - 5.00 K/mcL LAB HEMETOLOGY METHOD 04/07/2025 10:42 AM [facility] Monocytes Absolute 0.60 0.20 - 1.00 K/mcL LAB HEMETOLOGY METHOD 04/07/2025 10:42 AM [facility] Eosinophils Absolute 0.25 0.00 - 0.50 K/mcL LAB HEMETOLOGY METHOD 04/07/2025 10:42 AM [facility] Basophils Absolute 0.04 0.00 - 0.20 K/mcL LAB HEMETOLOGY METHOD 04/07/2025 10:42 AM [facility] Immature Granulocytes Absolute 0.02 0.00 - 0.03 K/mcL LAB HEMETOLOGY METHOD 04/07/2025 10:42 AM [facility] Blood Venous blood specimen / Unknown Venipuncture / Unknown 04/07/2025 9:12 AM EDT 04/07/2025 9:12 AM EDT Sheba Bermudez Sharon DALEY LAB BLOOD ORDERABLES Fin al Result Performing Organization Address [facility] de Phone Number [facility] [address] [place] [address], [place] [phone] * Hemoglobin A1c (04/07/2025 9:12 AM EDT) Hemoglobin A1C 6.3 <6.5 % LAB CHEMISTRY METHOD 04/07/2025 12:29 PM EDT [facility] Mean Bld Glu Estim. 134 mg/dL LAB CHEMISTRY METHOD 04/07/2025 12:29 PM EDT [facility] Blood Venous blood specimen / Unknown Venipuncture / Unknown 04/07/2025 9:12 AM EDT 04/07/2025 9:12 AM EDT Sheba Long Baemma DALEY LAB BLOOD ORDERABLES Fin al Result Performing Organization Address [facility] de Phone Number [facility] [address] [place] [address], [place] [phone] * US Drain Fluid Cath Perit/Retro Perc [...] guidance, needle aspiration was performed using 5 [place]ander centesis catheter. A total of 210 cc [...] Signed Date: 03/18/2025 15:51 ET Workstation ID: [id number] Transcribed By: Self Edit Transcribed Date: 03/18/2025 15:34 ET Resident/PA/RUBBER MILL TENDER: Maria Fernanda Carvalho Procedure Note Puma Chow [...] ultrasound guidance, needle aspiration wasperformed using 5 [place]ander centesis catheter. A total of 210 cc [...] Signed Date: 03/18/2025 15:51 ET Workstation ID: [id number] Transcribed By: Self Edit Transcribed Date: 03/18/2025 15:34 ET Resident/PA/RUBBER MILL TENDER: Maria Fernanda Carvalho Elmer Sky MD IMG US PROCEDURES Final Res ult * Activated partial thromboplastin time (03/15/2025 3:28 PM EDT) aPTT 30.0 24.1 - 39.3 sec LAB COAGULATION METHOD 03/15/2025 6:16 PM EDT [facility] Blood Venous blood specimen / Unknown Venipuncture / Unknown 03/15/2025 3:28 PM EDT 03/15/2025 3:28 PM EDT Elmer Sky MD LAB BLOOD ORDERABLES Final Result Performing Organization Address [facility]/ZIP Co de Phone Number [facility] [facility] [address] [place] [address], [place] [phone] * Prothrombin time with INR (03/15/2025 3:28 PM EDT) [facility] Protime 12.2 10.6 - 13.9 sec LAB COAGULATION METHOD 03/15/2025 6:16 PM EDT [facility] INR 1.0 LAB COAGULATION METHOD 03/15/2025 6:16 PM EDT [facility] Blood Venous blood specimen / Unknown Venipuncture / Unknown 03/15/2025 3:28 PM EDT 03/15/2025 3:28 PM EDT Elmer Sky MD LAB BLOOD ORDERABLES Final Result Performing Organization Address City/[facility]/ZIP Co de Phone Number [facility] [address] [place] [address], [place] [phone] * (ABNORMAL) Lipid panel (12/18/2018) LDL/HDL Ratio 3 0 - 4 Triglycerides 87 0 - 150 mg/dL Cholesterol 192 0 - 200 mg/dL HDL 56 >=40 mg/dL LDL Cholesterol 119(A) 0 - 100 mg/dL Blood Venous blood specimen / Unknown us Historical Provider LAB BLOOD ORDERABLES Fabi meeks Result from Last 3 Months or Most Recently Relevant to Health Maintenance Insurance [facility] Advance Directives * Full Code - Default (Latest Code Status on File) Date Activated Date Inactivated Comments 05/17/2025 6:15 AM 05/17/2025 12:09 PM This is ord er is used when code status has not been discussed with the patient, or code status is otherwise unknown/unconfirmed To update the patient's code status, place a code status order. Do not modify or discontinue any currently active code status orders. Care Teams Vegetable Grader Relationship Specialty Start Date End Date Elmer Sky MD [address] [place] [phone] PCP - General 01/14/23
[2025-05-26 21:10] VITALS: BP 143/73; PULSE 93; RESP 18; TEMP 36.6; O2SAT 98
== END 2025-05-26 21:12 | disposition home or self-care (01) ==
PROVIDERS: Emergency Provider Emergency Medicine; PCP Internal Medicine
DX: T81.30XA Disruption of wound, unspecified, initial encounter (principal); Y83.9 Surgical procedure, unspecified as the cause of abnormal reaction of the patient, or of later complication, without mention of misadventure at the time of the procedure; Y92.9 Unspecified place or not applicable; Z79.899 Other long term (current) drug therapy
CPT/HCPCS: 99283; 99284